=== PATIENT | male | born 1955 | race Caucasian/White ===

== ENCOUNTER 2023-02-05 10:15 | Outpatient (RCR) | payer MEDICARE, SELFPAY ==
[2023-01-15 09:58] VITALS: BP 161/88; PULSE 83; RESP 16; TEMP 36.9; BMI 49.1
[2023-01-15 10:16] VITALS: BMI 49.1
--- NOTE | 2023-01-15 13:49 | HP.PCM_ITS ---
History of Present Illness Date of Service: 01/15/23 Chief Complaint: Ulcerations, right posterior calf History of Wound: This is a 67-year-old obese male who presents with 2 ulcerations on the right posterior calf. The patient claimed to have had ulcerations in his lower extremities intermittently for many years. The current ulcerations have been present for several months. They occurred spontaneously, after the formation of blisters. The patient is inactive. Ambulation is limited, and he requires a cane or walker for mobility. He is morbidly obese. He sleeps in a chair. He wears graduated compression stockings of less than 20 to 30 mmHg compression. He also has pneumatic compression pumps, which he is not currently using. He has chronic swelling, edema, and lymphedema in his lower extremities. He spends a good part of each day sitting while watching television. The patient has recently undergone a venous duplex examination which revealed valvular incompetence involving the right great saphenous vein. A computerized tomography angiogram/venogram revealed no evidence of iliac vein obstruction. The patient does not smoke or drink. He is single and lives alone. [facility] Medical History (Updated 01/15/23 @ 14:[address] 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 Right leg swelling Sleep apnea in adult Varicose veins with ulcer and inflammation Venous stasis ulcer of right lower leg with edema of right lower leg Home Medications bumetanide 2 mg tablet 2 mg PO DAILY 01/15/23 [History Last Taken Unknown] fluoxetine 40 mg capsule 40 mg PO DAILY 01/15/23 [History Last Taken Unknown] lisinopril 20 mg tablet 20 mg PO DAILY 01/15/23 [History Last Taken Unknown] potassium citrate 10 mEq (1,080 mg) tablet,extended release 10 meq PO DAILY 01/15/23 [History Last Taken Unknown] valproic acid 250 mg capsule 250 mg PO TID 01/15/23 [History Last Taken Unknown] Allergy/AdvReac Type Severity Reaction Status Date / Time No Known Allergies Allergy Verified 01/15/23 10:10 other (The patient's family history includes abdominal aortic aneurysm, hypertension, coronary artery disease, COPD, hypothyroidism, and diabetes mellitus.) Surgical History History of bunionectomy History of tonsillectomy Social History Smoking Status: Never smoker Vital Signs Vital Signs Vital Signs: 01/15/23 09:58 Temperature 98.4 F Temperature Source Temporal Pulse Rate 83 Respiratory Rate 16 Blood Pressure 161/88 H Blood Pressure Mean 112 Blood Pressure Source Monitor Blood Pressure Position Semi-Fowlers Blood Pressure Location Left Arm Weight Weight: 372 lb Body Mass Index (BMI) 49.1 Physical Exam Const alert, oriented x3, no apparent distress, no limitations and well nourished Constitutional Narrative: The patient is morbidly obese. His BMI is 49.1. General Appearance: cooperative, comfortable, well kempt and well developed Orientation / Consciousness: awake, oriented to person, oriented to place and oriented to time HEENT normocephalic, head/scalp atraumatic and hearing grossly normal bilaterally Head and Scalp: normal to inspection, normocephalic and atraumatic External Ear: external ears normal Eyes PERRL and EOMs intact bilaterally General Eye: normal appearance of both eyes Resp normal respiratory effort, normal air movement, no retractions and no use of accessory muscles Effort and Inspection: able to speak in complete sentences Extremity no calf tenderness General Extremity: Negative for clubbing or cyanosis Skin Wound Narrative: 2 ulcerations are noted on the patient's right posterior calf. Dimensions are documented elsewhere. There is a moderate amount of bioburden and some nonviable tissue. There is no sign of infection or cellulitis. Moderate swelling and edema are noted in the patient's lower extremities bilaterally. Lipodermatosclerosis and hyperpigmentation are noted bilaterally in the gaiter areas. Multiphasic, strong ankle pulses are noted bilaterally. Neuro oriented x3, CN's II-XII intact bilaterally, moves all extremities and no focal motor deficits Sensorium / Orientation: awake, alert, oriented to person, oriented to place and oriented to time Psych Appearance: grossly normal and appropriate Attitude: calm Activity / Motor Behavior: appropriate eye contact Speech: normal speech Mood & Affect: euthymic mood Thought Process: normal thought process Thought Content: normal thought content Attention / Concentration: attention grossly intact Debridement Note Debridement Note Wound debrided: 2 ulcerations of the right posterior calf Laterality: Right Type of Debridement: Excisional debridement Anesthesia Used: 5% Lidocaine Gel Depth: Down to and including healthy tissue and in the subcutaneous layer Percentage of wound debrided: 100 Instrument Used: 5mm curette Tissue Removed: Bioburden and nonviable tissue Severity: Fat Layer Exposed Amount of bleeding with debridement: Mild Bleeding Controlled with: Compression and gauze Patient tolerated procedure: Patient tolerated procedure well Post-Debridement Measurements and Additional Note: Post-Debridement Measurements/Treatment - Nurse 1 - General Ulcer Assessment Start: 01/15/23 09:57 Freq: Status: Active Protocol: JACKIE Activity Type Activity Date Activity User E-sign Co-sign Detail Recorded Client Recorded Date Recorded By Document 01/15/23 09:58 [id number] 01/15/23 10:10 Edit Result 01/15/23 09:58 (1) [id number] 01/15/23 10:16 Document 01/15/23 10:16 [id number] 01/15/23 10:17 (1) Left - Posterior Tibial Palpable => Yes - Posterior Tibial Doppler => Multiphasic - Dorsalis Pedis Palpable => Yes - Dorsalis Pedis Doppler => Multiphasic Right - Posterior Tibial Palpable => Yes - Posterior Tibial Doppler => Multiphasic - Dorsalis Pedis Palpable => Yes - Dorsalis Pedis Doppler => Multiphasic 01/15/23 01/15/23 09:58 10:16 - Today's Visit Information Type of service Initial Visit Arrival Mode Ambulatory, Wheelchair Patient Identification Verified (Name & Yes ) Patient Requires Transmission-Based No Precautions Height and Weight Height 6 ft 1 in Weight 372 lb Weight in Pounds 372.0 lbs Body Mass Index (BMI) 49.1 49.1 BMI Classification Obese Obese BSA - Nabil 2.80 Vital Signs Temperature (97.8 F-99.1 F) 98.4 F Temperature Source Temporal Pulse Rate (60-100) 83 Pulse Location Apical Respiratory Rate (12-18) 16 Respiratory rate source Observation Blood Pressure (90/60-120/80) 161/88 H Blood Pressure Mean 112 Source Monitor Position Semi-Fowlers Blood Pressure Location Left Arm History Since Last Visit- (Skip if this is Patient's initial visit) Left Footwear Regular Shoe Right Footwear Regular Shoe Pain Scale: 0-10 Numeric Is Patient Pain Free? Yes Yes Lower Extremity Assessment/ Foot Assessment/ Toe Nail Assessment Left -Posterior Tibial Palpable Yes -Posterior Tibial Doppler Multiphasic -Dorsalis Pedis Palpable Yes -Dorsalis Pedis Doppler Multiphasic Right -Posterior Tibial Palpable Yes -Posterior Tibial Doppler Multiphasic -Dorsalis Pedis Palpable Yes -Dorsalis Pedis Doppler Multiphasic Communication Assessment Preferred language Tajik Gear Nicker Required No Able to Read Yes Able to Write Yes Communication Tools None Right Hearing Abillity Hard of Hearing Left Hearing Abillity Normal Visual Assistive Devices Glasses Teaching Assessment Preferences Verbal,Audio/ Visual, Demonstration Barriers to Learning None Readiness To Learn Excellent Willingness to Engage in Self Management High Activies Readiness to Engage in Self Management High Activities Anxiety Level Anxious Cooperation Cooperative Perception Coherent Interest in Health Problem Asks Questions Education Importance Acknowledges Need Does Patient Smoke tobacco or other No substances Smoking Status Never smoker Is Patient Diabetic No Functional Assessment Recent Decline in Ability to Perform Ambulation Assistive Device With Patient walker Culture/Catholic/Senior Mechanical Engineer Cultural/Catholic Needs that may affect No Treatment Plan Would you allow our hospital commercial account executive to No meet you for the purpose of spiritual/ emotional support? Senior Mechanical Engineer to contact place of advent No Teaching: Wound Center [facility] Orientation/ Contacting Physician -Person Taught Patient -Teaching Method Discussion, Demonstration -Response to teaching Return demonstration, Verbalize understanding - Nurse 1 - General Ulcer Measurement Start: 01/15/23 09:57 Freq: Status: Active Protocol: Activity Type Activity Date Activity User E-sign Co-sign Detail Recorded Client Recorded Date Recorded By Document 01/15/23 09:58 [id number] 01/15/23 10:10 LUCINA 01/15/23 09:58 Wound Center Nurse 1 2-right lateral calf -Combined with other wound No -Current Size (cm) - Length 0.9 -Current Size (cm) - Width 1.3 -Current Size (cm) - Depth 0.3 -Total Square Cm 1.17 -Photo Taken Yes -Epithelialization Small 1-33% -Tunneling No -Undermining/Tunneling No -Circular Undermining No -Exudate Amt Small -Exudate Type Serosanguineous -Wound Margin Flat & Intact -Granulation Amt Medium (34-66%) -Granulation Quality Pale,[place] -Slough/Fibrin Yes -Necrosis Amt Medium (34-66%) -Necrotic Tissue Type Adherent Slough -Structure Exposed N/A -Texture (Marilynn-wound Skin Appearance) Assessed, Localized Edema -Moisture (Marilynn-wound Skin Appearance) Assessed,Dry/ Scaly -Color (Marilynn-wound Skin Appearance) Assessed, Hemosiderin Staining -Temperature (Marilynn-wound Skin No Abnormality Appearance) (Pt Warm) -Tenderness on Palpation (Marilynn-wound No Skin Appearance) -Ulcer Cleansing Rinsed/ Irrigated with Saline -Foul Odor after Cleansing No -Anesthetic Used 5% Lidocaine Gel 1-right medial calf cluster -Combined with other wound No -Current Size (cm) - Length 0.8 -Current Size (cm) - Width 2.1 -Current Size (cm) - Depth 0.2 -Total Square Cm 1.68 -Photo Taken Yes -Epithelialization Small 1-33% -Tunneling No -Undermining/Tunneling No -Circular Undermining No -Classification - Thickness Full Thickness without Exposed Support Structure -Exudate Amt Small -Exudate Type Serosanguineous -Wound Margin Flat & Intact -Granulation Amt Small (1-33%) -Granulation Quality Pale -Slough/Fibrin Yes -Necrosis Amt Small (1-33%) -Necrotic Tissue Type Adherent Slough -Structure Exposed N/A -Texture (Marilynn-wound Skin Appearance) Assessed, Localized Edema -Moisture (Marilynn-wound Skin Appearance) Assessed,Dry/ Scaly -Color (Marilynn-wound Skin Appearance) Assessed, Hemosiderin Staining -Temperature (Marilynn-wound Skin No Abnormality Appearance) (Pt Warm) -Tenderness on Palpation (Marilynn-wound No Skin Appearance) -Ulcer Cleansing Rinsed/ Irrigated with Saline -Foul Odor after Cleansing No -Anesthetic Used 5% Lidocaine Gel Lower Limb Edema Present Yes Right Calf (cm) 48.7 Right Ankle (cm) 32.3 Left Calf (cm) 51.2 Left Ankle (cm) 31.5 WC - Nurse 3 - General Ulcer D/C NN Start: 01/15/23 09:57 Freq: Status: Active Protocol: Activity Type Activity Date Activity User E-sign Co-sign Detail Recorded Client Recorded Date Recorded By Document 01/15/23 10:52 DL [id number] 01/15/23 10:54 DL 01/15/23 10:52 Wound Care Center Nurse 3 2-right lateral calf -Ulcer Cleansing Rinsed/ Irrigated with Saline -Foul Odor after Cleansing No -Primary Dressing Applied Promogran -Primary Dressing Covered/Secured with Dry Gauze -Promogran 1 1-right medial calf cluster -Ulcer Cleansing Rinsed/ Irrigated with Saline -Foul Odor after Cleansing No -Other Dressing promgran -Primary Dressing Covered/Secured with Dry Gauze liyah -Multi-Layered Wrap Application Unna Boot - Bilateral ($) Treatment Response Procedure Tolerated Well Pain Scale: 0-10 Numeric Is Patient Pain Free? Yes WC - Visit Discharge Discharge Condition Stable Ambulatory Status Ambulatory Transportation Private Auto Assessment/Plan Assessment/Plan (1) Venous stasis ulcer of right lower leg with edema of right lower leg: CODE(S): I83.019 - Varicose veins of right lower extremity with ulcer of unspecified site; I83.891 - Varicose veins of right lower extremity with other complications; L97.919 - Non-pressure chronic ulcer of unspecified part of right lower leg with unspecified severity; R60.0 - Localized edema (2) Chronic venous hypertension w/ulcer and inflammation involv right side: CODE(S): I87.331 - Chronic venous hypertension (idiopathic) with ulcer and inflammation of right lower extremity (3) Right leg swelling: CODE(S): M79.89 - Other specified soft tissue disorders (4) Leg edema, right: CODE(S): R60.0 - Localized edema (5) Lymphedema: CODE(S): I89.0 - Lymphedema, not elsewhere classified (6) 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: CODE(S): I87.039 - Postthrombotic syndrome with ulcer and inflammation of unspecified lower extremity (7) History of deep vein thrombosis: CODE(S): Z86.718 - Personal history of other venous thrombosis and embolism (8) History of pulmonary embolism: CODE(S): Z86.711 - Personal history of pulmonary embolism (9) Varicose veins with ulcer and inflammation: CODE(S): I83.209 - Varicose veins of unspecified lower extremity with both ulcer of unspecified site and inflammation; L97.909 - Non-pressure chronic ulcer of unspecified part of unspecified lower leg with unspecified severity (10) Morbid obesity with BMI of 45.0-49.9, adult: CODE(S): E66.01 - Morbid (severe) obesity due to excess calories; Z68.42 - Body mass index [BMI] 45.0-49.9, adult (11) Hypertension: CODE(S): I10 - Essential (primary) hypertension (12) Diabetes mellitus: CODE(S): E11.9 - Type 2 diabetes mellitus without complications (13) Sleep apnea in adult: CODE(S): G47.30 - Sleep apnea, unspecified (14) Left leg swelling: CODE(S): M79.89 - Other specified soft tissue disorders (15) Leg edema, left: CODE(S): R60.0 - Localized edema (16) History of bunionectomy: CODE(S): Z98.890 - Other specified postprocedural states (17) History of tonsillectomy: CODE(S): Z90.89 - Acquired absence of other organs (18) Lipodermatosclerosis of both lower extremities: CODE(S): I83.11 - Varicose veins of right lower extremity with inflammation; I83.12 - Varicose veins of left lower extremity with inflammation (19) Dependent edema: CODE(S): R60.9 - Edema, unspecified PLAN: Plan This is a 67-year-old obese male with a history of ulcerations in his lower extremities. He presents at this time with 2 ulcerations on the right posterior calf, which have been present for several months. Patient has a history of lower extremity swelling and edema. He is relatively inactive. He spends a great deal of each day sitting and inactive. We are to implement a protocol of conservative treatment measures. A lengthy discussion has been undertaken with the patient. He has been encouraged to enhance his activity is much as possible. He has been discouraged from prolonged idle sitting. Leg elevation has been encouraged as well. Elevation is to be to heart level, or higher, is much as possible, and during both daytime and nighttime hours. The patient has been encouraged to sleep on a flat mattress at night. We are to implement compression to the lower extremities by means of Unna boots, which will be applied bilaterally, and changed twice weekly. Promogran will be applied topically on each of the 2 right posterior calf ulcerations. Ultimately, it will be necessary to transition the patient to compression to the lower extremities bilaterally, either by means of graduated compression stockings or Velcro compression garments. It is anticipated that compression should be at least 20 to 30 mmHg for the long-term. Weight loss is also been recommended. The patient owns pneumatic mechanical compression pumps, and has been asked to provide the brand and model number, so that he can be assured that these are adequate for his needs. The patient is to return in 1 week for reassessment. Total time: 52 minutes
[2023-01-18 11:47] VITALS: BP 181/88; PULSE 68; RESP 18; TEMP 35.5; BMI 49.1
[2023-01-22 10:18] VITALS: BP 157/83; PULSE 80; RESP 20; TEMP 36.6; BMI 49.1
--- NOTE | 2023-01-22 12:50 | PCM.WC.HP ---
History of Present Illness Date of Service: 01/22/23 Chief Complaint: Ulcerations, right posterior calf History of Wound: This is a 67-year-old obese male who presented with 2 ulcerations on the right posterior calf. The patient claimed to have had ulcerations in his lower extremities intermittently for many years. The current ulcerations had been present for several months. They occurred spontaneously, after the formation of blisters. The patient is inactive. Ambulation is limited, and he requires a cane or walker for mobility. He is morbidly obese. He sleeps in a chair. He wears graduated compression stockings of less than 20 to 30 mmHg compression. He also has pneumatic compression pumps, which he was not currently using. He has chronic swelling, edema, and lymphedema in his lower extremities. He spends a good part of each day sitting while watching television. The patient had recently undergone a venous duplex examination which revealed valvular incompetence involving the right great saphenous vein. A computerized tomography angiogram/venogram revealed no evidence of iliac vein obstruction. The patient does not smoke or drink. He is single and lives alone. 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 Right leg swelling Sleep apnea in adult Varicose veins with ulcer and inflammation Venous stasis ulcer of right lower leg with edema of right lower leg Home Medications bumetanide 2 mg tablet 2 mg PO DAILY 01/15/23 [History Last Taken Unknown] fluoxetine 40 mg capsule 40 mg PO DAILY 01/15/23 [History Last Taken Unknown] lisinopril 20 mg tablet 20 mg PO DAILY 01/15/23 [History Last Taken Unknown] potassium citrate 10 mEq (1,080 mg) tablet,extended release 10 meq PO DAILY 01/15/23 [History Last Taken Unknown] valproic acid 250 mg capsule 250 mg PO TID 01/15/23 [History Last Taken Unknown] Allergy/AdvReac Type Severity Reaction Status Date / Time No Known Allergies Allergy Verified 01/15/23 10:10 Family History other Surgical History History of bunionectomy History of tonsillectomy Social History Smoking Status: Never smoker Vital Signs Vital Signs Vital Signs: 01/22/23 10:18 Temperature 98 F Temperature Source Temporal Pulse Rate 80 Respiratory Rate 20 H Blood Pressure 157/83 H Blood Pressure Mean 107 Blood Pressure Source Monitor Weight Weight: 372 lb Body Mass Index (BMI) 49.1 Physical Exam Const alert, oriented x3, no apparent distress, no limitations and well nourished Constitutional Narrative: The patient is morbidly obese. His BMI is 49.1. General Appearance: cooperative, comfortable, well kempt and well developed Orientation / Consciousness: awake, oriented to person, oriented to place and oriented to time HEENT normocephalic, head/scalp atraumatic and hearing grossly normal bilaterally Head and Scalp: normal to inspection, normocephalic and atraumatic External Ear: external ears normal Eyes PERRL and EOMs intact bilaterally General Eye: normal appearance of both eyes Resp normal respiratory effort, normal air movement, no retractions and no use of accessory muscles Effort and Inspection: able to speak in complete sentences Extremity no calf tenderness General Extremity: Negative for clubbing or cyanosis Skin Wound Narrative: Only 1 small ulceration remains on the patient's right posterior calf. Dimensions are documented elsewhere. There is no sign of infection or cellulitis. There is a small amount of bioburden. A new, superficial excoriation is noted on the left lateral calf. There is no sign of infection or cellulitis. It does not appear to be full-thickness. Dimensions are documented elsewhere. Moderate swelling and edema are noted in the patient's lower extremities bilaterally. Lipodermatosclerosis and hyperpigmentation are noted bilaterally in the gaiter areas. Multiphasic, strong ankle pulses are noted bilaterally. Neuro oriented x3, CN's II-XII intact bilaterally, moves all extremities and no focal motor deficits Sensorium / Orientation: awake, alert, oriented to person, oriented to place and oriented to time Psych Appearance: grossly normal and appropriate Attitude: calm Activity / Motor Behavior: appropriate eye contact Speech: normal speech Mood & Affect: euthymic mood Thought Process: normal thought process Thought Content: normal thought content Attention / Concentration: attention grossly intact Debridement Note Debridement Note Wound debrided: Ulceration of the right posterior calf Laterality: Right Type of Debridement: Excisional debridement Anesthesia Used: 5% Lidocaine Gel Depth: Down to and including healthy tissue and in the subcutaneous layer Percentage of wound debrided: 100 Instrument Used: 3mm curette Tissue Removed: Bioburden Severity: Fat Layer Exposed Amount of bleeding with debridement: Mild Bleeding Controlled with: Compression and gauze Patient tolerated procedure: Patient tolerated procedure well Post-Debridement Measurements and Additional Note: Post-Debridement Measurements/Treatment - Nurse 1 - General Ulcer Assessment Start: 01/15/23 09:57 Freq: Status: Active Protocol: PadcomBOBBY Activity Type Activity Date Activity User E-sign Co-sign Detail Recorded Client Recorded Date Recorded By Document 01/15/23 09:58 [id number] 01/15/23 10:10 Edit Result 01/15/23 09:58 JF (1) [id number] 01/15/23 10:16 Document 01/15/23 10:16 JF [id number] 01/15/23 10:17 Document 01/18/23 11:47 RB [id number] 01/18/23 11:49 RB Document 01/22/23 10:18 DL [id number] 01/22/23 10:30 DL (1) Left - Posterior Tibial Palpable => Yes - Posterior Tibial Doppler => Multiphasic - Dorsalis Pedis Palpable => Yes - Dorsalis Pedis Doppler => Multiphasic Right - Posterior Tibial Palpable => Yes - Posterior Tibial Doppler => Multiphasic - Dorsalis Pedis Palpable => Yes - Dorsalis Pedis Doppler => Multiphasic 01/15/23 01/15/23 01/18/23 09:58 10:16 11:47 - Today's Visit Information Type of service Initial Visit Nurse-only Visit Arrival Mode Ambulatory, Ambulatory Wheelchair Transfer Assistance None Patient Identification Verified (Name & Yes Yes ) Patient Requires Transmission-Based No No Precautions Height and Weight Height 6 ft 1 in Weight 372 lb Weight in Pounds 372.0 lbs Body Mass Index (BMI) 49.1 49.1 49.1 BMI Classification Obese Obese Obese BSA - Nabil 2.80 Vital Signs Temperature (97.8 F-99.1 F) 98.4 F 96 F L Temperature Source Temporal Temporal Pulse Rate (60-100) 83 68 Pulse Location Apical Monitor Respiratory Rate (12-18) 16 18 Respiratory rate source Observation Observation Blood Pressure (90/60-120/80) 161/88 H 181/88 H Blood Pressure Mean 112 119 Source Monitor Monitor Position Semi-Fowlers Sitting Blood Pressure Location Left Arm Left Arm History Since Last Visit- (Skip if this is Patient's initial visit) Have you changed medications since your last visit? Any new allergies or adverse reactions Had a fall/change in ADL's that may increase risk of falls Signs or symptoms of abuse and/or neglect since last visit Have you been in the hospital since your last visit? Has dressing in place as prescribed Has compression in place as prescribed Has offloadiing in place as prescribed Experienced any changes in pain level or management Left Footwear Regular Shoe Right Footwear Regular Shoe Pain Scale: 0-10 Numeric Is Patient Pain Free? Yes Yes Yes Lower Extremity Assessment/ Foot Assessment/ Toe Nail Assessment Left -Posterior Tibial Palpable Yes -Posterior Tibial Doppler Multiphasic -Dorsalis Pedis Palpable Yes -Dorsalis Pedis Doppler Multiphasic Right -Posterior Tibial Palpable Yes -Posterior Tibial Doppler Multiphasic -Dorsalis Pedis Palpable Yes -Dorsalis Pedis Doppler Multiphasic Communication Assessment Preferred language [place] Waste Transportation Technician Required No Able to Read Yes Able to Write Yes Communication Tools None Right Hearing Abillity Hard of Hearing Left Hearing Abillity Normal Visual Assistive Devices Glasses Teaching Assessment Preferences Verbal,Audio/ Visual, Demonstration Barriers to Learning None Readiness To Learn Excellent Willingness to Engage in Self Management High Activies Readiness to Engage in Self Management High Activities Anxiety Level Anxious Cooperation Cooperative Perception Coherent Interest in Health Problem Asks Questions Education Importance Acknowledges Need Does Patient Smoke tobacco or other No substances Smoking Status Never smoker Is Patient Diabetic No Functional Assessment Recent Decline in Ability to Perform Ambulation Assistive Device With Patient walker Culture/Caodaism/Green Building Materials Designer Cultural/Caodaism Needs that may affect No Treatment Plan Would you allow our hospital department editor to No meet you for the purpose of spiritual/ emotional support? Green Building Materials Designer to contact place of cheondoism No Teaching: Wound Center [facility] Orientation/ Contacting Physician -Person Taught Patient -Teaching Method Discussion, Demonstration -Response to teaching Return demonstration, Verbalize understanding 01/22/23 10:18 - Today's Visit Information Type of service Follow-up Visit (Physician/RN POSTPARTUM ) Arrival Mode Ambulatory, Walker Transfer Assistance None Patient Identification Verified (Name & Yes ) Patient Requires Transmission-Based No Precautions Height and Weight Height Weight Weight in Pounds Body Mass Index (BMI) 49.1 BMI Classification Obese BSA - Nabil Vital Signs Temperature (97.8 F-99.1 F) 98 F Temperature Source Temporal Pulse Rate (60-100) 80 Pulse Location Monitor Respiratory Rate (12-18) 20 H Respiratory rate source Observation Blood Pressure (90/60-120/80) 157/83 H Blood Pressure Mean 107 Source Monitor Position Blood Pressure Location History Since Last Visit- (Skip if this is Patient's initial visit) Have you changed medications since your No last visit? Any new allergies or adverse reactions No Had a fall/change in ADL's that may No increase risk of falls Signs or symptoms of abuse and/or No neglect since last visit Have you been in the hospital since your No last visit? Has dressing in place as prescribed Yes Has compression in place as prescribed Yes Has offloadiing in place as prescribed N/A Experienced any changes in pain level or No management Left Footwear Right Footwear Pain Scale: 0-10 Numeric Is Patient Pain Free? Yes Lower Extremity Assessment/ Foot Assessment/ Toe Nail Assessment Left -Posterior Tibial Palpable -Posterior Tibial Doppler -Dorsalis Pedis Palpable -Dorsalis Pedis Doppler Right -Posterior Tibial Palpable -Posterior Tibial Doppler -Dorsalis Pedis Palpable -Dorsalis Pedis Doppler Communication Assessment Preferred sql dba Required Able to Read Able to Write Communication Tools Right Hearing Abillity Left Hearing Abillity Visual Assistive Devices Teaching Assessment Preferences Barriers to Learning Readiness To Learn Willingness to Engage in Self Management Activies Readiness to Engage in Self Management Activities Anxiety Level Cooperation Perception Interest in Health Problem Education Importance Does Patient Smoke tobacco or other substances Smoking Status Is Patient Diabetic Functional Assessment Recent Decline in Ability to Perform Assistive Device With Patient Culture/Caodaism/Green Building Materials Designer Cultural/Caodaism Needs that may affect Treatment Plan Would you allow our hospital department editor to meet you for the purpose of spiritual/ emotional support? Green Building Materials Designer to contact place of cheondoism Teaching: Wound Center [facility] Orientation/ Contacting Physician -Person Taught -Teaching Method -Response to teaching [facility] Nurse 1 - General Ulcer Measurement Start: 01/15/23 09:57 Freq: Status: Active Protocol: Activity Type Activity Date Activity User E-sign Co-sign Detail Recorded Client Recorded Date Recorded By Document 01/15/23 09:58 JF [id number] 01/15/23 10:10 Document 01/18/23 11:47 RB [id number] 01/18/23 11:49 RB Document 01/22/23 10:18 DL [id number] 01/22/23 10:30 DL 01/15/23 01/18/23 01/22/23 09:58 11:47 10:18 Wound Center Nurse 1 2-right lateral calf -Combined with other wound No -Current Size (cm) - Length 0.9 -Current Size (cm) - Width 1.3 -Current Size (cm) - Depth 0.3 -Total Square Cm 1.17 -Photo Taken Yes -Epithelialization Small 1-33% -Tunneling No -Undermining/Tunneling No -Circular Undermining No -Exudate Amt Small -Exudate Type Serosanguineous -Wound Margin Flat & Intact -Granulation Amt Medium (34-66%) -Granulation Quality Pale,[place] -Slough/Fibrin Yes -Necrosis Amt Medium (34-66%) -Necrotic Tissue Type Adherent Slough -Structure Exposed N/A -Texture (Marilynn-wound Skin Appearance) Assessed, Localized Edema -Moisture (Marilynn-wound Skin Appearance) Assessed,Dry/ Scaly -Color (Marilynn-wound Skin Appearance) Assessed, Hemosiderin Staining -Temperature (Marilynn-wound Skin No Abnormality Appearance) (Pt Warm) -Tenderness on Palpation (Marilynn-wound No Skin Appearance) -Ulcer Cleansing Rinsed/ Irrigated with Saline -Foul Odor after Cleansing No -Anesthetic Used 5% Lidocaine Gel #3 L Shah -Current Size (cm) - Length 1.6 -Current Size (cm) - Width 1.4 -Current Size (cm) - Depth 0.1 -Total Square Cm 2.24 -Photo Taken Yes -Exudate Amt Small -Exudate Type Serosanguineous -Wound Margin Distinct, Outline Attached -Granulation Amt Large (67-100%) -Granulation Quality [place] -Necrosis Amt None Present (0 %) -Structure Exposed N/A -Texture (Marilynn-wound Skin Appearance) Scarring -Moisture (Marilynn-wound Skin Appearance) Weeping -Color (Marilynn-wound Skin Appearance) Hemosiderin Staining -Temperature (Marilynn-wound Skin No Abnormality Appearance) (Pt Warm) -Tenderness on Palpation (Marilynn-wound No Skin Appearance) -Ulcer Cleansing Not Cleansed -Foul Odor after Cleansing No -Anesthetic Used 5% Lidocaine Gel 1-right medial calf cluster -Combined with other wound No -Current Size (cm) - Length 0.8 0.1 -Current Size (cm) - Width 2.1 0.1 -Current Size (cm) - Depth 0.2 0.1 -Total Square Cm 1.68 0.01 -Photo Taken Yes -Epithelialization Small 1-33% -Tunneling No -Undermining/Tunneling No -Circular Undermining No -Classification - Thickness Full Thickness without Exposed Support Structure -Exudate Amt Small None Present -Exudate Type Serosanguineous -Wound Margin Flat & Intact Flat & Intact -Granulation Amt Small (1-33%) Large (67-100%) -Granulation Quality Pale Red -Slough/Fibrin Yes -Necrosis Amt Small (1-33%) None Present (0 %) -Necrotic Tissue Type Adherent Slough -Structure Exposed N/A N/A -Texture (Marilynn-wound Skin Appearance) Assessed, Scarring Localized Edema -Moisture (Marilynn-wound Skin Appearance) Assessed,Dry/ Dry/Scaly Scaly -Color (Marilynn-wound Skin Appearance) Assessed, Hemosiderin Hemosiderin Staining Staining -Temperature (Marilynn-wound Skin No Abnormality No Abnormality Appearance) (Pt Warm) (Pt Warm) -Tenderness on Palpation (Marilynn-wound No No Skin Appearance) -Ulcer Cleansing Rinsed/ Soap and Water Irrigated with Saline -Foul Odor after Cleansing No No -Anesthetic Used 5% Lidocaine 5% Lidocaine Gel Gel Lower Limb Edema Present Yes Yes Right Calf (cm) 48.7 49.9 45 Right Ankle (cm) 32.3 30.2 30 Left Calf (cm) 51.2 49.5 46 Left Ankle (cm) 31.5 30 29.5 WC - Nurse 2 - General Ulcer CM Notes Start: 01/15/23 09:57 Freq: Status: Active Protocol: Activity Type Activity Date Activity User E-sign Co-sign Detail Recorded Client Recorded Date Recorded By Document 01/15/23 14:11 PL [id number] 01/15/23 14:13 PL 01/15/23 14:11 Wound Center Nurse 2 2-right lateral calf -Procedure Performed No -Wound/Ulcer Outcome Healed- Epithelialized 1-right medial calf cluster -Time 10:30 -Correct Patient Yes -Correct Side, Site, Position Yes -Correct Procedure Yes -Procedure Performed Yes -Type of Procedure Debridement -Clinical Debridement Subcutaneous -Tissue Removed Subcutaneous -Post Debridement (cm) - Length 0.8 -Post Debridement (cm) - Width 2.1 -Post Debridement (cm) - Depth 0.2 -Total Square (Post) (cm) 1.68 -Area of Debridement (cm) - Length 0.8 -Area of Debridement (cm) - Width 2.1 -Total Square (Area) (cm) 1.68 -Tunneling No -Undermining/Tunneling No -Circular Undermining No -Wound/Ulcer Outcome Not Healed -Ulcer Cleansing Rinsed/ Irrigated with Saline -Foul Odor after Cleansing No -Bioengineered Tissue No -Bleeding Controlled with Pressure -Treatment Response Procedure Tolerated Well -Debridement - Subq, 1st 20sq cm Yes Pain Scale: 0-10 Numeric Is Patient Pain Free? Yes WC - Nurse 3 - General Ulcer D/C NN Start: 01/15/23 09:57 Freq: Status: Active Protocol: Activity Type Activity Date Activity User E-sign Co-sign Detail Recorded Client Recorded Date Recorded By Document 01/15/23 10:52 DL [id number] 01/15/23 10:54 DL Document 01/18/23 11:47 RB [id number] 01/18/23 11:49 RB Document 01/22/23 11:04 [facility] [id number] 01/22/23 11:05 [facility] 01/15/23 01/18/23 01/22/23 10:52 11:47 11:04 Wound Care Center Nurse 3 2-right lateral calf -Ulcer Cleansing Rinsed/ Irrigated with Saline -Foul Odor after Cleansing No -Primary Dressing Applied Promogran -Primary Dressing Covered/Secured with Dry Gauze -Promogran 1 #3 L Shah -Ulcer Cleansing Rinsed/ Irrigated with Saline -Foul Odor after Cleansing No -Primary Dressing Applied Promogran -Primary Dressing Covered/Secured with Dry Gauze, Secured with Tape -Promogran 2 1-right medial calf cluster -Ulcer Cleansing Rinsed/ Wound Cleanser Rinsed/ Irrigated with Irrigated with Saline Saline -Foul Odor after Cleansing No No -Primary Dressing Applied Promogran -Other Dressing promgran promogran -Primary Dressing Covered/Secured with Dry Gauze Dry Gauze Dry Gauze, Secured with Tape -Promogran 0 ble -Tubular Bandage Single Layer -Size of Tubigrip Used Size F -Size F ($) 2 liyah -Multi-Layered Wrap Application Unna Boot - Unna Boot - Bilateral ($) Bilateral ($) -Tubular Bandage Single Layer -Size of Tubigrip Used Size E -Size E ($) 2 Treatment Response Procedure Procedure Procedure Tolerated Well Tolerated Well Tolerated Well Vital Signs Temperature (97.8 F-99.1 F) 96 F L Temperature Source Temporal Pulse Rate (60-100) 68 Pulse Location Monitor Respiratory Rate (12-18) 18 Respiratory rate source Observation Blood Pressure (90/60-120/80) 181/88 H Blood Pressure Mean 119 Source Monitor Position Sitting Blood Pressure Location Left Arm Pain Scale: 0-10 Numeric Is Patient Pain Free? Yes Yes Yes WC - Visit Discharge Discharge Condition Stable Stable Stable Ambulatory Status Ambulatory Ambulatory Ambulatory, Walker Transportation Private Auto Private Auto Private Auto Medication Reconcilliation completed & No provided to patient/care provider Clinical Summary of Care Provided Yes Assessment/Plan Assessment/Plan (1) Venous stasis ulcer of right lower leg with edema of right lower leg: CODE(S): I83.019 - Varicose veins of right lower extremity with ulcer of unspecified site; I83.891 - Varicose veins of right lower extremity with other complications; L97.919 - Non-pressure chronic ulcer of unspecified part of right lower leg with unspecified severity; R60.0 - Localized edema (2) Chronic venous hypertension w/ulcer and inflammation involv right side: CODE(S): I87.331 - Chronic venous hypertension (idiopathic) with ulcer and inflammation of right lower extremity (3) Right leg swelling: CODE(S): M79.89 - Other specified soft tissue disorders (4) Leg edema, right: CODE(S): R60.0 - Localized edema (5) Lymphedema: CODE(S): I89.0 - Lymphedema, not elsewhere classified (6) 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: CODE(S): I87.039 - Postthrombotic syndrome with ulcer and inflammation of unspecified lower extremity (7) History of deep vein thrombosis: CODE(S): Z86.718 - Personal history of other venous thrombosis and embolism (8) History of pulmonary embolism: CODE(S): Z86.711 - Personal history of pulmonary embolism (9) Varicose veins with ulcer and inflammation: CODE(S): I83.209 - Varicose veins of unspecified lower extremity with both ulcer of unspecified site and inflammation; L97.909 - Non-pressure chronic ulcer of unspecified part of unspecified lower leg with unspecified severity (10) Morbid obesity with BMI of 45.0-49.9, adult: CODE(S): E66.01 - Morbid (severe) obesity due to excess calories; Z68.42 - Body mass index [BMI] 45.0-49.9, adult (11) Hypertension: CODE(S): I10 - Essential (primary) hypertension (12) Diabetes mellitus: CODE(S): E11.9 - Type 2 diabetes mellitus without complications (13) Sleep apnea in adult: CODE(S): G47.30 - Sleep apnea, unspecified (14) Left leg swelling: CODE(S): M79.89 - Other specified soft tissue disorders (15) Leg edema, left: CODE(S): R60.0 - Localized edema (16) History of bunionectomy: CODE(S): Z98.890 - Other specified postprocedural states (17) History of tonsillectomy: CODE(S): Z90.89 - Acquired absence of other organs (18) Lipodermatosclerosis of both lower extremities: CODE(S): I83.11 - Varicose veins of right lower extremity with inflammation; I83.12 - Varicose veins of left lower extremity with inflammation (19) Dependent edema: CODE(S): R60.9 - Edema, unspecified PLAN: Plan This is a 67-year-old obese male with a history of ulcerations in his lower extremities. He presented with 2 ulcerations on the right posterior calf, which had been present for several months. The patient has a history of lower extremity swelling and edema. He is relatively inactive. He spends a great deal of each day sitting and inactive. We are to continue a protocol of conservative treatment measures. A lengthy discussion has been undertaken with the patient. He has been encouraged to enhance his activity is much as possible. He has been discouraged from prolonged idle sitting. Leg elevation has been encouraged as well. Elevation is to be to heart level, or higher, is much as possible, and during both daytime and nighttime hours. The patient has been encouraged to sleep on a flat mattress at night. We are to continue compression to the lower extremities by means of Tubigrip's, doubled, for a total of 30 to 40 mmHg compression. These will be donned on a daily basis. Promogran will be applied topically on the ulceration on the right posterior calf and on the excoriation on the left lateral calf. Ultimately, we will consider transition to the use of graduated compression stockings or Velcro compression garments of at least 20 to 30 mmHg compression for long-term use. Weight loss has also been recommended. The patient owns pneumatic mechanical compression pumps, and has been encouraged to use these 2-3 times daily for approximately 1 hour each session. The patient is to return in 1 week for reassessment. Total time: 28 minutes
[2023-01-29 08:34] VITALS: BP 133/86; PULSE 70; RESP 22; TEMP 36; BMI 49.1
--- NOTE | 2023-01-29 09:03 | PCM.WC.HP ---
History of Present Illness Date of Service: 01/29/23 Chief Complaint: Ulcerations, right posterior calf History of Wound: This is a 67-year-old obese male who presented with 2 ulcerations on the right posterior calf. The patient claimed to have had ulcerations in his lower extremities intermittently for many years. The current ulcerations had been present for several months. They occurred spontaneously, after the formation of blisters. The patient is inactive. Ambulation is limited, and he requires a cane or walker for mobility. He is morbidly obese. He sleeps in a chair. He wears graduated compression stockings of less than 20 to 30 mmHg compression. He also has pneumatic compression pumps, which he was not currently using. He has chronic swelling, edema, and lymphedema in his lower extremities. He spends a good part of each day sitting while watching television. The patient had recently undergone a venous duplex examination which revealed valvular incompetence involving the right great saphenous vein. A computerized tomography angiogram/venogram revealed no evidence of iliac vein obstruction. The patient does not smoke or drink. He is single and lives alone. [facility] Medical History (Updated 01/29/23 @ 09:[address] 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 Right leg swelling Sleep apnea in adult Varicose veins with ulcer and inflammation Venous stasis ulcer of left lower leg with edema of left lower leg Venous stasis ulcer of right lower leg with edema of right lower leg Home Medications bumetanide 2 mg tablet 2 mg PO DAILY 01/15/23 [History Last Taken Unknown] fluoxetine 40 mg capsule 40 mg PO DAILY 01/15/23 [History Last Taken Unknown] lisinopril 20 mg tablet 20 mg PO DAILY 01/15/23 [History Last Taken Unknown] potassium citrate 10 mEq (1,080 mg) tablet,extended release 10 meq PO DAILY 01/15/23 [History Last Taken Unknown] valproic acid 250 mg capsule 250 mg PO TID 01/15/23 [History Last Taken Unknown] Allergy/AdvReac Type Severity Reaction Status Date / Time No Known Allergies Allergy Verified 01/15/23 10:10 Family History other Surgical History History of bunionectomy History of tonsillectomy Social History Smoking Status: Never smoker Vital Signs Vital Signs Vital Signs: 01/29/23 08:34 Temperature 96.8 F L Temperature Source Temporal Pulse Rate 70 Respiratory Rate 22 H Blood Pressure 133/86 H Blood Pressure Mean 101 Blood Pressure Source Monitor Weight Weight: 372 lb Body Mass Index (BMI) 49.1 Physical Exam Const alert, oriented x3, no apparent distress, no limitations and well nourished Constitutional Narrative: The patient is morbidly obese. His BMI is 49.1. General Appearance: cooperative, comfortable, well kempt and well developed Orientation / Consciousness: awake, oriented to person, oriented to place and oriented to time HEENT normocephalic, head/scalp atraumatic and hearing grossly normal bilaterally Head and Scalp: normal to inspection, normocephalic and atraumatic External Ear: external ears normal Eyes PERRL and EOMs intact bilaterally General Eye: normal appearance of both eyes Resp normal respiratory effort, normal air movement, no retractions and no use of accessory muscles Effort and Inspection: able to speak in complete sentences Extremity no calf tenderness General Extremity: Negative for clubbing or cyanosis Skin Wound Narrative: Two small ulcerations are noted on the patient's right posterior calf. There is also an ulceration on the left lateral calf. Dimensions of each are documented elsewhere. There is no sign of infection or cellulitis. There is a small amount of bioburden involving each ulceration. Moderate swelling and edema are noted in the patient's lower extremities bilaterally. Lipodermatosclerosis and hyperpigmentation are noted bilaterally in the gaiter areas. Multiphasic, strong ankle pulses are noted bilaterally. Neuro oriented x3, CN's II-XII intact bilaterally, moves all extremities and no focal motor deficits Sensorium / Orientation: awake, alert, oriented to person, oriented to place and oriented to time Psych Appearance: grossly normal and appropriate Attitude: calm Activity / Motor Behavior: appropriate eye contact Speech: normal speech Mood & Affect: euthymic mood Thought Process: normal thought process Thought Content: normal thought content Attention / Concentration: attention grossly intact Debridement Note Debridement Note Wound debrided: Ulceration of the right posterior calf Laterality: Right Type of Debridement: Excisional debridement Anesthesia Used: 5% Lidocaine Gel Depth: Down to and including healthy tissue and in the subcutaneous layer Percentage of wound debrided: 100 Instrument Used: 3mm curette Tissue Removed: Bioburden Severity: Fat Layer Exposed Amount of bleeding with debridement: Mild Bleeding Controlled with: Compression and gauze Patient tolerated procedure: Patient tolerated procedure well Post-Debridement Measurements and Additional Note: Post-Debridement Measurements/Treatment - Nurse 1 - General Ulcer Assessment Start: 01/15/23 09:57 Freq: Status: Active Protocol: .DittoLilia Activity Type Activity Date Activity User E-sign Co-sign Detail Recorded Client Recorded Date Recorded By Document 01/15/23 09:58 [id number] 01/15/23 10:10 Edit Result 01/15/23 09:58 JF (1) [id number] 01/15/23 10:16 Document 01/15/23 10:16 JF [id number] 01/15/23 10:17 Document 01/18/23 11:47 RB [id number] 01/18/23 11:49 RB Document 01/22/23 10:18 DL [id number] 01/22/23 10:30 DL Document 01/29/23 08:34 DL Desktop 01/29/23 08:42 DL (1) Left - Posterior Tibial Palpable => Yes - Posterior Tibial Doppler => Multiphasic - Dorsalis Pedis Palpable => Yes - Dorsalis Pedis Doppler => Multiphasic Right - Posterior Tibial Palpable => Yes - Posterior Tibial Doppler => Multiphasic - Dorsalis Pedis Palpable => Yes - Dorsalis Pedis Doppler => Multiphasic 01/15/23 01/15/23 01/18/23 09:58 10:16 11:47 - Today's Visit Information Type of service Initial Visit Nurse-only Visit Arrival Mode Ambulatory, Ambulatory Wheelchair Transfer Assistance None Patient Identification Verified (Name & Yes Yes ) Patient Requires Transmission-Based No No Precautions Height and Weight Height 6 ft 1 in Weight 372 lb Weight in Pounds 372.0 lbs Body Mass Index (BMI) 49.1 49.1 49.1 BMI Classification Obese Obese Obese BSA - Nabil 2.80 Vital Signs Temperature (97.8 F-99.1 F) 98.4 F 96 F L Temperature Source Temporal Temporal Pulse Rate (60-100) 83 68 Pulse Location Apical Monitor Respiratory Rate (12-18) 16 18 Respiratory rate source Observation Observation Blood Pressure (90/60-120/80) 161/88 H 181/88 H Blood Pressure Mean 112 119 Source Monitor Monitor Position Semi-Fowlers Sitting Blood Pressure Location Left Arm Left Arm History Since Last Visit- (Skip if this is Patient's initial visit) Have you changed medications since your last visit? Any new allergies or adverse reactions Had a fall/change in ADL's that may increase risk of falls Signs or symptoms of abuse and/or neglect since last visit Have you been in the hospital since your last visit? Has dressing in place as prescribed Has compression in place as prescribed Has offloadiing in place as prescribed Experienced any changes in pain level or management Left Footwear Regular Shoe Right Footwear Regular Shoe Pain Scale: 0-10 Numeric Is Patient Pain Free? Yes Yes Yes Lower Extremity Assessment/ Foot Assessment/ Toe Nail Assessment Left -Posterior Tibial Palpable Yes -Posterior Tibial Doppler Multiphasic -Dorsalis Pedis Palpable Yes -Dorsalis Pedis Doppler Multiphasic Right -Posterior Tibial Palpable Yes -Posterior Tibial Doppler Multiphasic -Dorsalis Pedis Palpable Yes -Dorsalis Pedis Doppler Multiphasic Communication Assessment Preferred language Czech Special Weapons And Tactics Officer Required No Able to Read Yes Able to Write Yes Communication Tools None Right Hearing Abillity Hard of Hearing Left Hearing Abillity Normal Visual Assistive Devices Glasses Teaching Assessment Preferences Verbal,Audio/ Visual, Demonstration Barriers to Learning None Readiness To Learn Excellent Willingness to Engage in Self Management High Activies Readiness to Engage in Self Management High Activities Anxiety Level Anxious Cooperation Cooperative Perception Coherent Interest in Health Problem Asks Questions Education Importance Acknowledges Need Does Patient Smoke tobacco or other No substances Smoking Status Never smoker Is Patient Diabetic No Functional Assessment Recent Decline in Ability to Perform Ambulation Assistive Device With Patient walker Culture/Scientologist/Dry End Operator Cultural/Scientologist Needs that may affect No Treatment Plan Would you allow our hospital [facility] to No meet you for the purpose of spiritual/ emotional support? Dry End Operator to contact place of mu-ism No Teaching: Wound Center [facility] Orientation/ Contacting Physician -Person Taught Patient -Teaching Method Discussion, Demonstration -Response to teaching Return demonstration, Verbalize understanding 01/22/23 01/29/23 10:18 08:34 - Today's Visit Information Type of service Follow-up Visit Follow-up Visit (Physician/[employer] PROFESSIONAL (Physician/[employer] PROFESSIONAL ) ) Arrival Mode Ambulatory, Ambulatory Walker Transfer Assistance None None Patient Identification Verified (Name & Yes Yes ) Patient Requires Transmission-Based No No Precautions Height and Weight Height Weight Weight in Pounds Body Mass Index (BMI) 49.1 49.1 BMI Classification Obese Obese BSA - Nabil Vital Signs Temperature (97.8 F-99.1 F) 98 F 96.8 F L Temperature Source Temporal Temporal Pulse Rate (60-100) 80 70 Pulse Location Monitor Respiratory Rate (12-18) 20 H 22 H Respiratory rate source Observation Observation Blood Pressure (90/60-120/80) 157/83 H 133/86 H Blood Pressure Mean 107 101 Source Monitor Monitor Position Blood Pressure Location History Since Last Visit- (Skip if this is Patient's initial visit) Have you changed medications since your No No last visit? Any new allergies or adverse reactions No No Had a fall/change in ADL's that may No No increase risk of falls Signs or symptoms of abuse and/or No No neglect since last visit Have you been in the hospital since your No No last visit? Has dressing in place as prescribed Yes Yes Has compression in place as prescribed Yes Yes Has offloadiing in place as prescribed N/A N/A Experienced any changes in pain level or No No management Left Footwear Right Footwear Pain Scale: 0-10 Numeric Is Patient Pain Free? Yes Yes Lower Extremity Assessment/ Foot Assessment/ Toe Nail Assessment Left -Posterior Tibial Palpable -Posterior Tibial Doppler -Dorsalis Pedis Palpable -Dorsalis Pedis Doppler Right -Posterior Tibial Palpable -Posterior Tibial Doppler -Dorsalis Pedis Palpable -Dorsalis Pedis Doppler Communication Assessment Preferred measurement operator Required Able to Read Able to Write Communication Tools Right Hearing Abillity Left Hearing Abillity Visual Assistive Devices Teaching Assessment Preferences Barriers to Learning Readiness To Learn Willingness to Engage in Self Management Activies Readiness to Engage in Self Management Activities Anxiety Level Cooperation Perception Interest in Health Problem Education Importance Does Patient Smoke tobacco or other substances Smoking Status Is Patient Diabetic Functional Assessment Recent Decline in Ability to Perform Assistive Device With Patient Culture/Scientologist/Dry End Operator Cultural/Scientologist Needs that may affect Treatment Plan Would you allow our hospital [facility] to meet you for the purpose of spiritual/ emotional support? Dry End Operator to contact place of mu-ism Teaching: Wound Center [facility] Orientation/ Contacting Physician -Person Taught -Teaching Method -Response to teaching - Nurse 1 - General Ulcer Measurement Start: 01/15/23 09:57 Freq: Status: Active Protocol: Activity Type Activity Date Activity User E-sign Co-sign Detail Recorded Client Recorded Date Recorded By Document 01/15/23 09:58 JF [id number] 01/15/23 10:10 JF Document 01/18/23 11:47 RB [id number] 01/18/23 11:49 RB Document 01/22/23 10:18 DL [id number] 01/22/23 10:30 DL Document 01/29/23 08:34 DL Desktop 01/29/23 08:42 DL 01/15/23 01/18/23 01/22/23 09:58 11:47 10:18 Wound Center Nurse 1 2-right lateral calf -Combined with other wound No -Current Size (cm) - Length 0.9 -Current Size (cm) - Width 1.3 -Current Size (cm) - Depth 0.3 -Total Square Cm 1.17 -Photo Taken Yes -Epithelialization Small 1-33% -Tunneling No -Undermining/Tunneling No -Circular Undermining No -Exudate Amt Small -Exudate Type Serosanguineous -Wound Margin Flat & Intact -Granulation Amt Medium (34-66%) -Granulation Quality Pale,[place] -Slough/Fibrin Yes -Necrosis Amt Medium (34-66%) -Necrotic Tissue Type Adherent Slough -Structure Exposed N/A -Texture (Marilynn-wound Skin Appearance) Assessed, Localized Edema -Moisture (Marilynn-wound Skin Appearance) Assessed,Dry/ Scaly -Color (Marilynn-wound Skin Appearance) Assessed, Hemosiderin Staining -Temperature (Marilynn-wound Skin No Abnormality Appearance) (Pt Warm) -Tenderness on Palpation (Marilynn-wound No Skin Appearance) -Ulcer Cleansing Rinsed/ Irrigated with Saline -Foul Odor after Cleansing No -Anesthetic Used 5% Lidocaine Gel #3 L Shah -Current Size (cm) - Length 1.6 -Current Size (cm) - Width 1.4 -Current Size (cm) - Depth 0.1 -Total Square Cm 2.24 -Photo Taken Yes -Exudate Amt Small -Exudate Type Serosanguineous -Wound Margin Distinct, Outline Attached -Granulation Amt Large (67-100%) -Granulation Quality [place] -Necrosis Amt None Present (0 %) -Structure Exposed N/A -Texture (Marilynn-wound Skin Appearance) Scarring -Moisture (Marilynn-wound Skin Appearance) Weeping -Color (Marilynn-wound Skin Appearance) Hemosiderin Staining -Temperature (Marilynn-wound Skin No Abnormality Appearance) (Pt Warm) -Tenderness on Palpation (Marilynn-wound No Skin Appearance) -Ulcer Cleansing Not Cleansed -Foul Odor after Cleansing No -Anesthetic Used 5% Lidocaine Gel 1-right medial calf cluster -Combined with other wound No -Current Size (cm) - Length 0.8 0.1 -Current Size (cm) - Width 2.1 0.1 -Current Size (cm) - Depth 0.2 0.1 -Total Square Cm 1.68 0.01 -Photo Taken Yes -Epithelialization Small 1-33% -Tunneling No -Undermining/Tunneling No -Circular Undermining No -Classification - Thickness Full Thickness without Exposed Support Structure -Exudate Amt Small None Present -Exudate Type Serosanguineous -Wound Margin Flat & Intact Flat & Intact -Granulation Amt Small (1-33%) Large (67-100%) -Granulation Quality Pale Red -Slough/Fibrin Yes -Necrosis Amt Small (1-33%) None Present (0 %) -Necrotic Tissue Type Adherent Slough -Structure Exposed N/A N/A -Texture (Marilynn-wound Skin Appearance) Assessed, Scarring Localized Edema -Moisture (Marilynn-wound Skin Appearance) Assessed,Dry/ Dry/Scaly Scaly -Color (Marilynn-wound Skin Appearance) Assessed, Hemosiderin Hemosiderin Staining Staining -Temperature (Marilynn-wound Skin No Abnormality No Abnormality Appearance) (Pt Warm) (Pt Warm) -Tenderness on Palpation (Marilynn-wound No No Skin Appearance) -Ulcer Cleansing Rinsed/ Soap and Water Irrigated with Saline -Foul Odor after Cleansing No No -Anesthetic Used 5% Lidocaine 5% Lidocaine Gel Gel Lower Limb Edema Present Yes Yes Right Calf (cm) 48.7 49.9 45 Right Ankle (cm) 32.3 30.2 30 Left Calf (cm) 51.2 49.5 46 Left Ankle (cm) 31.5 30 29.5 Left Foot (cm) 01/29/23 08:34 Wound Center Nurse 1 2-right lateral calf -Combined with other wound -Current Size (cm) - Length -Current Size (cm) - Width -Current Size (cm) - Depth -Total Square Cm -Photo Taken -Epithelialization -Tunneling -Undermining/Tunneling -Circular Undermining -Exudate Amt -Exudate Type -Wound Margin -Granulation Amt -Granulation Quality -Slough/Fibrin -Necrosis Amt -Necrotic Tissue Type -Structure Exposed -Texture (Marilynn-wound Skin Appearance) -Moisture (Marilynn-wound Skin Appearance) -Color (Marilynn-wound Skin Appearance) -Temperature (Marilynn-wound Skin Appearance) -Tenderness on Palpation (Marilynn-wound Skin Appearance) -Ulcer Cleansing -Foul Odor after Cleansing -Anesthetic Used #3 L Shah -Current Size (cm) - Length 0.6 -Current Size (cm) - Width 0.7 -Current Size (cm) - Depth 0.1 -Total Square Cm 0.42 -Photo Taken -Exudate Amt Medium -Exudate Type Serosanguineous -Wound Margin Distinct, Outline Attached -Granulation Amt Large (67-100%) -Granulation Quality [place] -Necrosis Amt None Present (0 %) -Structure Exposed N/A -Texture (Marilynn-wound Skin Appearance) Scarring -Moisture (Marilynn-wound Skin Appearance) No Abnormality -Color (Marilynn-wound Skin Appearance) No Abnormality -Temperature (Marilynn-wound Skin No Abnormality Appearance) (Pt Warm) -Tenderness on Palpation (Marilynn-wound Skin Appearance) -Ulcer Cleansing Soap and Water -Foul Odor after Cleansing No -Anesthetic Used 5% Lidocaine Gel 1-right medial calf cluster -Combined with other wound -Current Size (cm) - Length 0.7 -Current Size (cm) - Width 5.4 -Current Size (cm) - Depth 0.2 -Total Square Cm 3.78 -Photo Taken -Epithelialization -Tunneling -Undermining/Tunneling -Circular Undermining -Classification - Thickness -Exudate Amt Small -Exudate Type -Wound Margin Distinct, Outline Attached -Granulation Amt Large (67-100%) -Granulation Quality Red -Slough/Fibrin -Necrosis Amt Small (1-33%) -Necrotic Tissue Type Adherent Slough -Structure Exposed N/A -Texture (Marilynn-wound Skin Appearance) Scarring -Moisture (Marilynn-wound Skin Appearance) No Abnormality -Color (Marilynn-wound Skin Appearance) Hemosiderin Staining -Temperature (Marilynn-wound Skin No Abnormality Appearance) (Pt Warm) -Tenderness on Palpation (Marilynn-wound No Skin Appearance) -Ulcer Cleansing Soap and Water -Foul Odor after Cleansing No -Anesthetic Used 5% Lidocaine Gel Lower Limb Edema Present Right Calf (cm) 48.3 Right Ankle (cm) 30.6 Left Calf (cm) 48.4 Left Ankle (cm) Left Foot (cm) 29.2 WC - Nurse 2 - General Ulcer CM Notes Start: 01/15/23 09:57 Freq: Status: Active Protocol: Activity Type Activity Date Activity User E-sign Co-sign Detail Recorded Client Recorded Date Recorded By Document 01/15/23 14:11 PL [id number] 01/15/23 14:13 PL Document 01/22/23 13:15 PL [id number] 01/22/23 13:17 PL 01/15/23 01/22/23 14:11 13:15 Wound Center Nurse 2 2-right lateral calf -Procedure Performed No -Wound/Ulcer Outcome Healed- Epithelialized #3 L Shah -Time 10:46 -Correct Patient Yes -Correct Side, Site, Position Yes -Correct Procedure Yes -Procedure Performed Yes -Type of Procedure Debridement -Clinical Debridement Subcutaneous -Tissue Removed Subcutaneous -Post Debridement (cm) - Length 1.7 -Post Debridement (cm) - Width 1.5 -Post Debridement (cm) - Depth 0.1 -Total Square (Post) (cm) 2.55 -Area of Debridement (cm) - Length 1.7 -Area of Debridement (cm) - Width 1.5 -Total Square (Area) (cm) 2.55 -Tunneling No -Undermining/Tunneling No -Circular Undermining No -Wound/Ulcer Outcome Not Healed -Ulcer Cleansing Rinsed/ Irrigated with Saline -Foul Odor after Cleansing No -Bioengineered Tissue No -Bleeding Controlled with Pressure -Treatment Response Procedure Tolerated Well -Debridement - Subq, 1st 20sq cm No 1-right medial calf cluster -Time 10:30 10:46 -Correct Patient Yes Yes -Correct Side, Site, Position Yes Yes -Correct Procedure Yes Yes -Procedure Performed Yes Yes -Type of Procedure Debridement Debridement -Clinical Debridement Subcutaneous Subcutaneous -Tissue Removed Subcutaneous Subcutaneous -Post Debridement (cm) - Length 0.8 0.1 -Post Debridement (cm) - Width 2.1 0.1 -Post Debridement (cm) - Depth 0.2 0.1 -Total Square (Post) (cm) 1.68 0.01 -Area of Debridement (cm) - Length 0.8 0.1 -Area of Debridement (cm) - Width 2.1 0.1 -Total Square (Area) (cm) 1.68 0.01 -Tunneling No No -Undermining/Tunneling No No -Circular Undermining No No -Wound/Ulcer Outcome Not Healed Not Healed -Ulcer Cleansing Rinsed/ Rinsed/ Irrigated with Irrigated with Saline Saline -Foul Odor after Cleansing No No -Bioengineered Tissue No No -Bleeding Controlled with Pressure Pressure -Treatment Response Procedure Procedure Tolerated Well Tolerated Well -Debridement - Subq, 1st 20sq cm Yes Yes Pain Scale: 0-10 Numeric Is Patient Pain Free? Yes Yes - Nurse 3 - General Ulcer D/C NN Start: 01/15/23 09:57 Freq: Status: Active Protocol: Activity Type Activity Date Activity User E-sign Co-sign Detail Recorded Client Recorded Date Recorded By Document 01/15/23 10:52 DL [id number] 01/15/23 10:54 DL Document 01/18/23 11:47 RB [id number] 01/18/23 11:49 RB Document 01/22/23 11:04 [facility] [id number] 01/22/23 11:05 [facility] Document 01/29/23 08:52 DL Desktop 01/29/23 08:53 DL Edit Result 01/29/23 08:52 DL (1) Desktop 01/29/23 09:03 DL (1) 1-right medial calf cluster - Other Dressing => promogran - Primary Dressing Covered/Secured with => Dry Gauze,Secured => with Tape ble - Tubular Bandage => Double Layer - Size of Tubigrip Used => Size F - Size F ($) => 2 Ambulatory Status Ambulatory, => Ambulatory,Walker Crutches => 09/05/23 09/08/23 09/12/23 10:52 11:47 11:04 Wound Care Center Nurse 3 2-right lateral calf -Ulcer Cleansing Rinsed/ Irrigated with Saline -Foul Odor after Cleansing No -Primary Dressing Applied Promogran -Primary Dressing Covered/Secured with Dry Gauze -Promogran 1 #3 L Shah -Ulcer Cleansing Rinsed/ Irrigated with Saline -Foul Odor after Cleansing No -Primary Dressing Applied Promogran -Primary Dressing Covered/Secured with Dry Gauze, Secured with Tape -Promogran 2 1-right medial calf cluster -Ulcer Cleansing Rinsed/ Wound Cleanser Rinsed/ Irrigated with Irrigated with Saline Saline -Foul Odor after Cleansing No No -Primary Dressing Applied Promogran -Other Dressing promgran promogran -Primary Dressing Covered/Secured with Dry Gauze Dry Gauze Dry Gauze, Secured with Tape -Promogran 0 ble -Tubular Bandage Single Layer -Size of Tubigrip Used Size F -Size F ($) 2 liyah -Multi-Layered Wrap Application Unna Boot - Unna Boot - Bilateral ($) Bilateral ($) -Tubular Bandage Single Layer -Size of Tubigrip Used Size E -Size E ($) 2 Treatment Response Procedure Procedure Procedure Tolerated Well Tolerated Well Tolerated Well Vital Signs Temperature (97.8 F-99.1 F) 96 F L Temperature Source Temporal Pulse Rate (60-100) 68 Pulse Location Monitor Respiratory Rate (12-18) 18 Respiratory rate source Observation Blood Pressure (90/60-120/80) 181/88 H Blood Pressure Mean 119 Source Monitor Position Sitting Blood Pressure Location Left Arm Pain Scale: 0-10 Numeric Is Patient Pain Free? Yes Yes Yes WC - Visit Discharge Discharge Condition Stable Stable Stable Ambulatory Status Ambulatory Ambulatory Ambulatory, Walker Transportation Private Auto Private Auto Private Auto Accompanied by Medication Reconcilliation completed & No provided to patient/care provider Clinical Summary of Care Provided Yes 01/29/23 08:52 Wound Care Center Nurse 3 2-right lateral calf -Ulcer Cleansing -Foul Odor after Cleansing -Primary Dressing Applied -Primary Dressing Covered/Secured with -Promogran #3 L Shah -Ulcer Cleansing Rinsed/ Irrigated with Saline -Foul Odor after Cleansing No -Primary Dressing Applied Promogran -Primary Dressing Covered/Secured with Dry Gauze, Secured with Tape -Promogran 1 1-right medial calf cluster -Ulcer Cleansing -Foul Odor after Cleansing -Primary Dressing Applied -Other Dressing promogran -Primary Dressing Covered/Secured with Dry Gauze, Secured with Tape -Promogran ble -Tubular Bandage Double Layer -Size of Tubigrip Used Size F -Size F ($) 2 liyah -Multi-Layered Wrap Application -Tubular Bandage -Size of Tubigrip Used -Size E ($) Treatment Response Vital Signs Temperature (97.8 F-99.1 F) Temperature Source Pulse Rate (60-100) Pulse Location Respiratory Rate (12-18) Respiratory rate source Blood Pressure (90/60-120/80) Blood Pressure Mean Source Position Blood Pressure Location Pain Scale: 0-10 Numeric Is Patient Pain Free? Yes WC - Visit Discharge Discharge Condition Stable Ambulatory Status Ambulatory, Walker Transportation Private Auto Accompanied by Medication Reconcilliation completed & Yes provided to patient/care provider Clinical Summary of Care Provided Yes Additional Wound Wound debrided: Ulceration of the left lateral calf Laterality: Left Type of Debridement: Excisional debridement Anesthesia Used: 5% Lidocaine Gel Depth: Down to and including healthy tissue and in the subcutaneous layer Percentage of wound debrided: 100 Instrument Used: 3mm curette Tissue Removed: Bioburden and nonviable tissue Severity: Fat Layer Exposed Amount of bleeding with debridement: Mild Bleeding Controlled with: Compression and gauze Patient tolerated procedure: Patient tolerated procedure well Assessment/Plan Assessment/Plan (1) Venous stasis ulcer of right lower leg with edema of right lower leg: CODE(S): I83.019 - Varicose veins of right lower extremity with ulcer of unspecified site; I83.891 - Varicose veins of right lower extremity with other complications; L97.919 - Non-pressure chronic ulcer of unspecified part of right lower leg with unspecified severity; R60.0 - Localized edema (2) Venous stasis ulcer of left lower leg with edema of left lower leg: CODE(S): I83.029 - Varicose veins of left lower extremity with ulcer of unspecified site; I83.892 - Varicose veins of left lower extremity with other complications; L97.929 - Non-pressure chronic ulcer of unspecified part of left lower leg with unspecified severity; R60.0 - Localized edema (3) Chronic venous hypertension w/ulcer and inflammation involv right side: CODE(S): I87.331 - Chronic venous hypertension (idiopathic) with ulcer and inflammation of right lower extremity (4) Right leg swelling: CODE(S): M79.89 - Other specified soft tissue disorders (5) Leg edema, right: CODE(S): R60.0 - Localized edema (6) Lymphedema: CODE(S): I89.0 - Lymphedema, not elsewhere classified (7) 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: CODE(S): I87.039 - Postthrombotic syndrome with ulcer and inflammation of unspecified lower extremity (8) History of deep vein thrombosis: CODE(S): Z86.718 - Personal history of other venous thrombosis and embolism (9) History of pulmonary embolism: CODE(S): Z86.711 - Personal history of pulmonary embolism (10) Varicose veins with ulcer and inflammation: CODE(S): I83.209 - Varicose veins of unspecified lower extremity with both ulcer of unspecified site and inflammation; L97.909 - Non-pressure chronic ulcer of unspecified part of unspecified lower leg with unspecified severity (11) Morbid obesity with BMI of 45.0-49.9, adult: CODE(S): E66.01 - Morbid (severe) obesity due to excess calories; Z68.42 - Body mass index [BMI] 45.0-49.9, adult (12) Hypertension: CODE(S): I10 - Essential (primary) hypertension (13) Diabetes mellitus: CODE(S): E11.9 - Type 2 diabetes mellitus without complications (14) Sleep apnea in adult: CODE(S): G47.30 - Sleep apnea, unspecified (15) Left leg swelling: CODE(S): M79.89 - Other specified soft tissue disorders (16) Leg edema, left: CODE(S): R60.0 - Localized edema (17) History of bunionectomy: CODE(S): Z98.890 - Other specified postprocedural states (18) History of tonsillectomy: CODE(S): Z90.89 - Acquired absence of other organs (19) Lipodermatosclerosis of both lower extremities: CODE(S): I83.11 - Varicose veins of right lower extremity with inflammation; I83.12 - Varicose veins of left lower extremity with inflammation (20) Dependent edema: CODE(S): R60.9 - Edema, unspecified PLAN: Plan This is a 67-year-old obese male with a history of ulcerations in his lower extremities. He presented with 2 ulcerations on the right posterior calf, which had been present for several months. He now also has an ulceration on the left lateral calf. The patient has a history of lower extremity swelling and edema. He is relatively inactive. He spends a great deal of each day sitting and inactive. We are to continue a protocol of conservative treatment measures. A lengthy discussion has been undertaken with the patient. He has been encouraged to enhance his activity is much as possible. He has been discouraged from prolonged idle sitting. Leg elevation has been encouraged as well. Elevation is to be to heart level, or higher, is much as possible, and during both daytime and nighttime hours. The patient has been encouraged to sleep on a flat mattress at night. Thus far, the patient has been only moderately compliant with leg elevation. We are to continue compression to the lower extremities by means of Tubigrip's, doubled, for a total of 30 to 40 mmHg compression. These will be donned on a daily basis. Promogran will be applied topically to all ulcerations on a daily basis. The patient has been instructed in the appropriate means of application. Ultimately, we will consider transition to the use of graduated compression stockings or Velcro compression garments of at least 20 to 30 mmHg compression for long-term use. Weight loss has also been recommended. The patient owns pneumatic mechanical compression pumps, and has been encouraged to use these 2-3 times daily for approximately 1 hour each session. The patient is to return in 1 week for reassessment. Of note, the patient failed to receive Promogran, which has been ordered. Therefore, he has been using Neosporin topically for the last week or so. This, as well as a lack of proper lower extremity elevation, may account for a lack of significant progress recently. Total time: 26 minutes
[2023-02-05 10:08] VITALS: BP 156/86; PULSE 68; RESP 20; TEMP 36.1; BMI 49.1
--- NOTE | 2023-02-05 12:33 | HP.PCM_ITS ---
History of Present Illness Date of Service: 02/05/23 Chief Complaint: Ulcerations, right posterior calf History of Wound: This is a 67-year-old obese male who presented with 2 ulcerations on the right posterior calf. The patient claimed to have had ulcerations in his lower extremities intermittently for many years. The current ulcerations had been present for several months. They occurred spontaneously, after the formation of blisters. The patient is inactive. Ambulation is limited, and he requires a cane or walker for mobility. He is morbidly obese. He sleeps in a chair. He wears graduated compression stockings of less than 20 to 30 mmHg compression. He also has pneumatic compression pumps, which he was not currently using. He has chronic swelling, edema, and lymphedema in his lower extremities. He spends a good part of each day sitting while watching television. The patient had recently undergone a venous duplex examination which revealed valvular incompetence involving the right great saphenous vein. A computerized tomography angiogram/venogram revealed no evidence of iliac vein obstruction. The patient does not smoke or drink. He is single and lives alone. 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 Right leg swelling Sleep apnea in adult Varicose veins with ulcer and inflammation Venous stasis ulcer of left lower leg with edema of left lower leg Venous stasis ulcer of right lower leg with edema of right lower leg Home Medications bumetanide 2 mg tablet 2 mg PO DAILY 01/15/23 [History Last Taken Unknown] fluoxetine 40 mg capsule 40 mg PO DAILY 01/15/23 [History Last Taken Unknown] lisinopril 20 mg tablet 20 mg PO DAILY 01/15/23 [History Last Taken Unknown] potassium citrate 10 mEq (1,080 mg) tablet,extended release 10 meq PO DAILY 01/15/23 [History Last Taken Unknown] valproic acid 250 mg capsule 250 mg PO TID 01/15/23 [History Last Taken Unknown] Allergy/AdvReac Type Severity Reaction Status Date / Time No Known Allergies Allergy Verified 01/15/23 10:10 Family History other Surgical History History of bunionectomy History of tonsillectomy Social History Smoking Status: Never smoker Vital Signs Vital Signs Vital Signs: 02/05/23 10:08 Temperature 97 F L Temperature Source Temporal Pulse Rate 68 Respiratory Rate 20 H Blood Pressure 156/86 H Blood Pressure Mean 109 Blood Pressure Source Monitor Blood Pressure Position Sitting Blood Pressure Location Left Arm Oxygen Delivery Method Room Air Weight Weight: 372 lb Body Mass Index (BMI) 49.1 Physical Exam Const alert, oriented x3, no apparent distress, no limitations and well nourished Constitutional Narrative: The patient is morbidly obese. His BMI is 49.1. General Appearance: cooperative, comfortable, well kempt and well developed Orientation / Consciousness: awake, oriented to person, oriented to place and oriented to time HEENT normocephalic, head/scalp atraumatic and hearing grossly normal bilaterally Head and Scalp: normal to inspection, normocephalic and atraumatic External Ear: external ears normal Eyes PERRL and EOMs intact bilaterally General Eye: normal appearance of both eyes Resp normal respiratory effort, normal air movement, no retractions and no use of accessory muscles Effort and Inspection: able to speak in complete sentences Extremity no calf tenderness General Extremity: Negative for clubbing or cyanosis Skin Wound Narrative: A small ulceration is noted on the patient's right posterior calf. There is also an ulceration on the left lateral calf. Dimensions of each are documented elsewhere. There is no sign of infection or cellulitis. There is a small amount of bioburden involving each ulceration. Moderate swelling and edema are noted in the patient's lower extremities bilaterally. Lipodermatosclerosis and hyperpigmentation are noted bilaterally in the gaiter areas. Multiphasic, strong ankle pulses are noted bilaterally. Neuro oriented x3, CN's II-XII intact bilaterally, moves all extremities and no focal motor deficits Sensorium / Orientation: awake, alert, oriented to person, oriented to place and oriented to time Psych Appearance: grossly normal and appropriate Attitude: calm Activity / Motor Behavior: appropriate eye contact Speech: normal speech Mood & Affect: euthymic mood Thought Process: normal thought process Thought Content: normal thought content Attention / Concentration: attention grossly intact Debridement Note Debridement Note Wound debrided: Ulceration of the right posterior calf Laterality: Right Type of Debridement: Excisional debridement Anesthesia Used: 5% Lidocaine Gel Depth: Down to and including healthy tissue and in the subcutaneous layer Percentage of wound debrided: 100 Instrument Used: 3mm curette Tissue Removed: Bioburden Severity: Fat Layer Exposed Amount of bleeding with debridement: Mild Bleeding Controlled with: Compression and gauze Patient tolerated procedure: Patient tolerated procedure well Post-Debridement Measurements and Additional Note: Post-Debridement Measurements/Treatment - Nurse 1 - General Ulcer Assessment Start: 01/15/23 09:57 Freq: Status: Active Protocol: JACKIE Activity Type Activity Date Activity User E-sign Co-sign Detail Recorded Client Recorded Date Recorded By Document 01/15/23 09:58 [id number] 01/15/23 10:10 JF Edit Result 01/15/23 09:58 JF (1) [id number] 01/15/23 10:16 JF Document 01/15/23 10:16 JF [id number] 01/15/23 10:17 JF Document 01/18/23 11:47 RB [id number] 01/18/23 11:49 RB Document 01/22/23 10:18 DL [id number] 01/22/23 10:30 DL Document 01/29/23 08:34 DL Desktop 01/29/23 08:42 DL Document 02/05/23 10:08 BMF Desktop 02/05/23 10:16 BMF (1) Left - Posterior Tibial Palpable => Yes - Posterior Tibial Doppler => Multiphasic - Dorsalis Pedis Palpable => Yes - Dorsalis Pedis Doppler => Multiphasic Right - Posterior Tibial Palpable => Yes - Posterior Tibial Doppler => Multiphasic - Dorsalis Pedis Palpable => Yes - Dorsalis Pedis Doppler => Multiphasic 01/15/23 01/15/23 01/18/23 09:58 10:16 11:47 - Today's Visit Information Type of service Initial Visit Nurse-only Visit Arrival Mode Ambulatory, Ambulatory Wheelchair Transfer Assistance None Patient Identification Verified (Name & Yes Yes ) Patient Requires Transmission-Based No No Precautions Height and Weight Height 6 ft 1 in Weight 372 lb Weight in Pounds 372.0 lbs Body Mass Index (BMI) 49.1 49.1 49.1 BMI Classification Obese Obese Obese BSA - Nabil 2.80 Vital Signs Temperature (97.8 F-99.1 F) 98.4 F 96 F L Temperature Source Temporal Temporal Pulse Rate (60-100) 83 68 Pulse Location Apical Monitor Respiratory Rate (12-18) 16 18 Respiratory rate source Observation Observation Oxygen Delivery Method Blood Pressure (90/60-120/80) 161/88 H 181/88 H Blood Pressure Mean 112 119 Source Monitor Monitor Position Semi-Fowlers Sitting Blood Pressure Location Left Arm Left Arm History Since Last Visit- (Skip if this is Patient's initial visit) Have you changed medications since your last visit? Any new allergies or adverse reactions Had a fall/change in ADL's that may increase risk of falls Signs or symptoms of abuse and/or neglect since last visit Have you been in the hospital since your last visit? Has dressing in place as prescribed Has compression in place as prescribed Has offloadiing in place as prescribed Experienced any changes in pain level or management Left Footwear Regular Shoe Right Footwear Regular Shoe Pain Scale: 0-10 Numeric Is Patient Pain Free? Yes Yes Yes Lower Extremity Assessment/ Foot Assessment/ Toe Nail Assessment Left -Posterior Tibial Palpable Yes -Posterior Tibial Doppler Multiphasic -Dorsalis Pedis Palpable Yes -Dorsalis Pedis Doppler Multiphasic Right -Posterior Tibial Palpable Yes -Posterior Tibial Doppler Multiphasic -Dorsalis Pedis Palpable Yes -Dorsalis Pedis Doppler Multiphasic Communication Assessment Preferred language [place] Allergist/Immunologist Physician Required No Able to Read Yes Able to Write Yes Communication Tools None Right Hearing Abillity Hard of Hearing Left Hearing Abillity Normal Visual Assistive Devices Glasses Teaching Assessment Preferences Verbal,Audio/ Visual, Demonstration Barriers to Learning None Readiness To Learn Excellent Willingness to Engage in Self Management High Activies Readiness to Engage in Self Management High Activities Anxiety Level Anxious Cooperation Cooperative Perception Coherent Interest in Health Problem Asks Questions Education Importance Acknowledges Need Does Patient Smoke tobacco or other No substances Smoking Status Never smoker Is Patient Diabetic No Functional Assessment Recent Decline in Ability to Perform Ambulation Assistive Device With Patient walker Culture/Confucianism/Bundle Tier And Labeler Cultural/Confucianism Needs that may affect No Treatment Plan Would you allow our [facility] flanger to No meet you for the purpose of spiritual/ emotional support? Bundle Tier And Labeler to contact place of druze No Teaching: Wound Center [facility] Orientation/ Contacting Physician -Person Taught Patient -Teaching Method Discussion, Demonstration -Response to teaching Return demonstration, Verbalize understanding 01/22/23 01/29/23 02/05/23 10:18 08:34 10:08 - Today's Visit Information Type of service Follow-up Visit Follow-up Visit Follow-up Visit (Physician/WIND FARM SUPPORT SPECIALIST (Physician/WIND FARM SUPPORT SPECIALIST (Physician/WIND FARM SUPPORT SPECIALIST ) ) ) Arrival Mode Ambulatory, Ambulatory Ambulatory, Walker Walker Transfer Assistance None None None Patient Identification Verified (Name & Yes Yes Yes ) Patient Requires Transmission-Based No No No Precautions Height and Weight Height Weight Weight in Pounds Body Mass Index (BMI) 49.1 49.1 49.1 BMI Classification Obese Obese Obese BSA - Nabil Vital Signs Temperature (97.8 F-99.1 F) 98 F 96.8 F L 97 F L Temperature Source Temporal Temporal Temporal Pulse Rate (60-100) 80 70 68 Pulse Location Monitor Monitor Respiratory Rate (12-18) 20 H 22 H 20 H Respiratory rate source Observation Observation Observation Oxygen Delivery Method Room Air Blood Pressure (90/60-120/80) 157/83 H 133/86 H 156/86 H Blood Pressure Mean 107 101 109 Source Monitor Monitor Monitor Position Sitting Blood Pressure Location Left Arm History Since Last Visit- (Skip if this is Patient's initial visit) Have you changed medications since your No No No last visit? Any new allergies or adverse reactions No No No Had a fall/change in ADL's that may No No No increase risk of falls Signs or symptoms of abuse and/or No No No neglect since last visit Have you been in the hospital since your No No No last visit? Has dressing in place as prescribed Yes Yes Yes Has compression in place as prescribed Yes Yes Yes Has offloadiing in place as prescribed N/A N/A N/A Experienced any changes in pain level or No No No management Left Footwear Regular Shoe Right Footwear Regular Shoe Pain Scale: 0-10 Numeric Is Patient Pain Free? Yes Yes Yes Lower Extremity Assessment/ Foot Assessment/ Toe Nail Assessment Left -Posterior Tibial Palpable -Posterior Tibial Doppler -Dorsalis Pedis Palpable -Dorsalis Pedis Doppler Right -Posterior Tibial Palpable -Posterior Tibial Doppler -Dorsalis Pedis Palpable -Dorsalis Pedis Doppler Communication Assessment Preferred language asst Required Able to Read Able to Write Communication Tools Right Hearing Abillity Left Hearing Abillity Visual Assistive Devices Teaching Assessment Preferences Barriers to Learning Readiness To Learn Willingness to Engage in Self Management Activies Readiness to Engage in Self Management Activities Anxiety Level Cooperation Perception Interest in Health Problem Education Importance Does Patient Smoke tobacco or other substances Smoking Status Is Patient Diabetic Functional Assessment Recent Decline in Ability to Perform Assistive Device With Patient Culture/Confucianism/Bundle Tier And Labeler Cultural/Confucianism Needs that may affect Treatment Plan Would you allow our hospital flanger to meet you for the purpose of spiritual/ emotional support? Bundle Tier And Labeler to contact place of druze Teaching: Wound Center [facility] Orientation/ Contacting Physician -Person Taught -Teaching Method -Response to teaching [facility] Nurse 1 - General Ulcer Measurement Start: 01/15/23 09:57 Freq: Status: Active Protocol: Activity Type Activity Date Activity User E-sign Co-sign Detail Recorded Client Recorded Date Recorded By Document 01/15/23 09:58 [id number] 01/15/23 10:10 Document 01/18/23 11:47 RB [id number] 01/18/23 11:49 RB Document 01/22/23 10:18 DL [id number] 01/22/23 10:30 DL Document 01/29/23 08:34 DL Desktop 01/29/23 08:42 DL Document 02/05/23 10:08 BMF Desktop 02/05/23 10:16 BMF 01/15/23 01/18/23 01/22/23 09:58 11:47 10:18 Wound Center Nurse 1 1-right medial calf cluster -Combined with other wound No -Current Size (cm) - Length 0.8 0.1 -Current Size (cm) - Width 2.1 0.1 -Current Size (cm) - Depth 0.2 0.1 -Total Square Cm 1.68 0.01 -Photo Taken Yes -Epithelialization Small 1-33% -Tunneling No -Undermining/Tunneling No -Circular Undermining No -Classification - Thickness Full Thickness without Exposed Support Structure -Exudate Amt Small None Present -Exudate Type Serosanguineous -Wound Margin Flat & Intact Flat & Intact -Granulation Amt Small (1-33%) Large (67-100%) -Granulation Quality Pale Red -Slough/Fibrin Yes -Necrosis Amt Small (1-33%) None Present (0 %) -Necrotic Tissue Type Adherent Slough -Structure Exposed N/A N/A -Texture (Marilynn-wound Skin Appearance) Assessed, Scarring Localized Edema -Moisture (Marilynn-wound Skin Appearance) Assessed,Dry/ Dry/Scaly Scaly -Color (Marilynn-wound Skin Appearance) Assessed, Hemosiderin Hemosiderin Staining Staining -Temperature (Marilynn-wound Skin No Abnormality No Abnormality Appearance) (Pt Warm) (Pt Warm) -Tenderness on Palpation (Marilynn-wound No No Skin Appearance) -Ulcer Cleansing Rinsed/ Soap and Water Irrigated with Saline -Foul Odor after Cleansing No No -Anesthetic Used 5% Lidocaine 5% Lidocaine Gel Gel #3 L Shah -Combined with other wound -Current Size (cm) - Length 1.6 -Current Size (cm) - Width 1.4 -Current Size (cm) - Depth 0.1 -Total Square Cm 2.24 -Photo Taken Yes -Epithelialization -Tunneling -Undermining/Tunneling -Circular Undermining -Exudate Amt Small -Exudate Type Serosanguineous -Wound Margin Distinct, Outline Attached -Granulation Amt Large (67-100%) -Granulation Quality [place] -Slough/Fibrin -Necrosis Amt None Present (0 %) -Necrotic Tissue Type -Structure Exposed N/A -Texture (Marilynn-wound Skin Appearance) Scarring -Moisture (Marilynn-wound Skin Appearance) Weeping -Color (Marilynn-wound Skin Appearance) Hemosiderin Staining -Temperature (Marilynn-wound Skin No Abnormality Appearance) (Pt Warm) -Tenderness on Palpation (Marilynn-wound No Skin Appearance) -Ulcer Cleansing Not Cleansed -Foul Odor after Cleansing No -Anesthetic Used 5% Lidocaine Gel 2-right lateral calf -Combined with other wound No -Current Size (cm) - Length 0.9 -Current Size (cm) - Width 1.3 -Current Size (cm) - Depth 0.3 -Total Square Cm 1.17 -Photo Taken Yes -Epithelialization Small 1-33% -Tunneling No -Undermining/Tunneling No -Circular Undermining No -Exudate Amt Small -Exudate Type Serosanguineous -Wound Margin Flat & Intact -Granulation Amt Medium (34-66%) -Granulation Quality Pale,[place] -Slough/Fibrin Yes -Necrosis Amt Medium (34-66%) -Necrotic Tissue Type Adherent Slough -Structure Exposed N/A -Texture (Marilynn-wound Skin Appearance) Assessed, Localized Edema -Moisture (Marilynn-wound Skin Appearance) Assessed,Dry/ Scaly -Color (Marilynn-wound Skin Appearance) Assessed, Hemosiderin Staining -Temperature (Marilynn-wound Skin No Abnormality Appearance) (Pt Warm) -Tenderness on Palpation (Marilynn-wound No Skin Appearance) -Ulcer Cleansing Rinsed/ Irrigated with Saline -Foul Odor after Cleansing No -Anesthetic Used 5% Lidocaine Gel Lower Limb Edema Present Yes Yes Right Calf (cm) 48.7 49.9 45 Right Ankle (cm) 32.3 30.2 30 Left Calf (cm) 51.2 49.5 46 Left Ankle (cm) 31.5 30 29.5 Left Foot (cm) 01/29/23 02/05/23 08:34 10:08 Wound Center Nurse 1 1-right medial calf cluster -Combined with other wound No -Current Size (cm) - Length 0.7 0.1 -Current Size (cm) - Width 5.4 0.1 -Current Size (cm) - Depth 0.2 0.1 -Total Square Cm 3.78 0.01 -Photo Taken No -Epithelialization Large 67-100% -Tunneling No -Undermining/Tunneling No -Circular Undermining No -Classification - Thickness -Exudate Amt Small None Present -Exudate Type -Wound Margin Distinct, Distinct, Outline Outline Attached Attached -Granulation Amt Large (67-100%) -Granulation Quality Red -Slough/Fibrin Yes -Necrosis Amt Small (1-33%) Small (1-33%) -Necrotic Tissue Type Adherent Slough Adherent Slough -Structure Exposed N/A -Texture (Marilynn-wound Skin Appearance) Scarring Assessed, Scarring -Moisture (Marilynn-wound Skin Appearance) No Abnormality Assessed,Dry/ Scaly -Color (Marilynn-wound Skin Appearance) Hemosiderin Assessed Staining -Temperature (Marilynn-wound Skin No Abnormality No Abnormality Appearance) (Pt Warm) (Pt Warm) -Tenderness on Palpation (Marilynn-wound No No Skin Appearance) -Ulcer Cleansing Soap and Water Rinsed/ Irrigated with Saline -Foul Odor after Cleansing No No -Anesthetic Used 5% Lidocaine 4% Lidocaine Gel Solution #3 L Shah -Combined with other wound No -Current Size (cm) - Length 0.6 0.5 -Current Size (cm) - Width 0.7 0.7 -Current Size (cm) - Depth 0.1 0.1 -Total Square Cm 0.42 0.35 -Photo Taken -Epithelialization Large 67-100% -Tunneling No -Undermining/Tunneling No -Circular Undermining No -Exudate Amt Medium None Present -Exudate Type Serosanguineous -Wound Margin Distinct, Distinct, Outline Outline Attached Attached -Granulation Amt Large (67-100%) -Granulation Quality [place] -Slough/Fibrin Yes -Necrosis Amt None Present (0 Small (1-33%) %) -Necrotic Tissue Type Eschar -Structure Exposed N/A -Texture (Marilynn-wound Skin Appearance) Scarring Assessed, Scarring -Moisture (Marilynn-wound Skin Appearance) No Abnormality Assessed -Color (Marilynn-wound Skin Appearance) No Abnormality Assessed -Temperature (Marilynn-wound Skin No Abnormality No Abnormality Appearance) (Pt Warm) (Pt Warm) -Tenderness on Palpation (Marilynn-wound No Skin Appearance) -Ulcer Cleansing Soap and Water Rinsed/ Irrigated with Saline -Foul Odor after Cleansing No Yes, Due to Product Use -Anesthetic Used 5% Lidocaine 4% Lidocaine Gel Solution 2-right lateral calf -Combined with other wound No -Current Size (cm) - Length 0.8 -Current Size (cm) - Width 0.8 -Current Size (cm) - Depth 0.3 -Total Square Cm 0.64 -Photo Taken -Epithelialization None Present -Tunneling No -Undermining/Tunneling No -Circular Undermining No -Exudate Amt Medium -Exudate Type Serous -Wound Margin Distinct, Outline Attached -Granulation Amt Small (1-33%) -Granulation Quality [place] -Slough/Fibrin Yes -Necrosis Amt Large (67-100%) -Necrotic Tissue Type Eschar -Structure Exposed -Texture (Marilynn-wound Skin Appearance) Assessed, Scarring -Moisture (Marilynn-wound Skin Appearance) Assessed -Color (Marilynn-wound Skin Appearance) Assessed -Temperature (Marilynn-wound Skin No Abnormality Appearance) (Pt Warm) -Tenderness on Palpation (Marilynn-wound No Skin Appearance) -Ulcer Cleansing Rinsed/ Irrigated with Saline -Foul Odor after Cleansing No -Anesthetic Used 4% Lidocaine Solution Lower Limb Edema Present Yes Right Calf (cm) 48.3 54.5 Right Ankle (cm) 30.6 31.8 Left Calf (cm) 48.4 52.5 Left Ankle (cm) 29.4 Left Foot (cm) 29.2 WC - Nurse 2 - General Ulcer CM Notes Start: 01/15/23 09:57 Freq: Status: Active Protocol: Activity Type Activity Date Activity User E-sign Co-sign Detail Recorded Client Recorded Date Recorded By Document 01/15/23 14:11 PL [id number] 01/15/23 14:13 PL Document 01/22/23 13:15 PL [id number] 01/22/23 13:17 PL Document 01/29/23 13:06 PL [id number] 01/29/23 13:08 PL Document 02/05/23 11:56 PL [id number] 02/05/23 11:57 PL 01/15/23 01/22/23 01/29/23 14:11 13:15 13:06 Wound Center Nurse 2 1-right medial calf cluster -Time 10:30 10:46 08:50 -Correct Patient Yes Yes Yes -Correct Side, Site, Position Yes Yes Yes -Correct Procedure Yes Yes Yes -Procedure Performed Yes Yes Yes -Type of Procedure Debridement Debridement Debridement -Clinical Debridement Subcutaneous Subcutaneous Subcutaneous -Tissue Removed Subcutaneous Subcutaneous Subcutaneous -Post Debridement (cm) - Length 0.8 0.1 0.7 -Post Debridement (cm) - Width 2.1 0.1 5.4 -Post Debridement (cm) - Depth 0.2 0.1 0.2 -Total Square (Post) (cm) 1.68 0.01 3.78 -Area of Debridement (cm) - Length 0.8 0.1 0.7 -Area of Debridement (cm) - Width 2.1 0.1 5.4 -Total Square (Area) (cm) 1.68 0.01 3.78 -Tunneling No No No -Undermining/Tunneling No No No -Circular Undermining No No No -Wound/Ulcer Outcome Not Healed Not Healed Not Healed -Ulcer Cleansing Rinsed/ Rinsed/ Rinsed/ Irrigated with Irrigated with Irrigated with Saline Saline Saline -Foul Odor after Cleansing No No No -Bioengineered Tissue No No No -Bleeding Controlled with Pressure Pressure Pressure -Treatment Response Procedure Procedure Procedure Tolerated Well Tolerated Well Tolerated Well -Debridement - Subq, 1st 20sq cm Yes Yes Yes #3 L Shah -Time 10:46 08:50 -Correct Patient Yes Yes -Correct Side, Site, Position Yes Yes -Correct Procedure Yes Yes -Procedure Performed Yes Yes -Type of Procedure Debridement Debridement -Clinical Debridement Subcutaneous Subcutaneous -Tissue Removed Subcutaneous Subcutaneous -Post Debridement (cm) - Length 1.7 0.6 -Post Debridement (cm) - Width 1.5 0.7 -Post Debridement (cm) - Depth 0.1 0.1 -Total Square (Post) (cm) 2.55 0.42 -Area of Debridement (cm) - Length 1.7 0.6 -Area of Debridement (cm) - Width 1.5 0.7 -Total Square (Area) (cm) 2.55 0.42 -Tunneling No No -Undermining/Tunneling No No -Circular Undermining No No -Wound/Ulcer Outcome Not Healed Not Healed -Ulcer Cleansing Rinsed/ Rinsed/ Irrigated with Irrigated with Saline Saline -Foul Odor after Cleansing No No -Bioengineered Tissue No No -Bleeding Controlled with Pressure Pressure -Treatment Response Procedure Procedure Tolerated Well Tolerated Well -Debridement - Subq, 20sq cm No No 2-right lateral calf -Time -Correct Patient -Correct Side, Site, Position -Correct Procedure -Procedure Performed No -Type of Procedure -Clinical Debridement -Tissue Removed -Post Debridement (cm) - Length -Post Debridement (cm) - Width -Post Debridement (cm) - Depth -Total Square (Post) (cm) -Area of Debridement (cm) - Length -Area of Debridement (cm) - Width -Total Square (Area) (cm) -Tunneling -Undermining/Tunneling -Circular Undermining -Wound/Ulcer Outcome Healed- Epithelialized -Ulcer Cleansing -Foul Odor after Cleansing -Bioengineered Tissue -Bleeding Controlled with -Treatment Response -Debridement - Subq, 20sq cm Pain Scale: 0-10 Numeric Is Patient Pain Free? Yes Yes Yes 02/05/23 11:56 Wound Center Nurse 2 1-right medial calf cluster -Time -Correct Patient -Correct Side, Site, Position -Correct Procedure -Procedure Performed No -Type of Procedure -Clinical Debridement -Tissue Removed -Post Debridement (cm) - Length -Post Debridement (cm) - Width -Post Debridement (cm) - Depth -Total Square (Post) (cm) -Area of Debridement (cm) - Length -Area of Debridement (cm) - Width -Total Square (Area) (cm) -Tunneling -Undermining/Tunneling -Circular Undermining -Wound/Ulcer Outcome Healed- Epithelialized -Ulcer Cleansing -Foul Odor after Cleansing -Bioengineered Tissue -Bleeding Controlled with -Treatment Response -Debridement - Subq, 1st 20sq cm #3 L Shah -Time 10:20 -Correct Patient Yes -Correct Side, Site, Position Yes -Correct Procedure Yes -Procedure Performed Yes -Type of Procedure Debridement -Clinical Debridement Subcutaneous -Tissue Removed Subcutaneous -Post Debridement (cm) - Length 0.6 -Post Debridement (cm) - Width 0.7 -Post Debridement (cm) - Depth 0.1 -Total Square (Post) (cm) 0.42 -Area of Debridement (cm) - Length 0.6 -Area of Debridement (cm) - Width 0.7 -Total Square (Area) (cm) 0.42 -Tunneling No -Undermining/Tunneling No -Circular Undermining No -Wound/Ulcer Outcome Not Healed -Ulcer Cleansing Rinsed/ Irrigated with Saline -Foul Odor after Cleansing No -Bioengineered Tissue No -Bleeding Controlled with Pressure -Treatment Response Procedure Tolerated Well -Debridement - Subq, 20sq cm No 2-right lateral calf -Time 10:20 -Correct Patient Yes -Correct Side, Site, Position Yes -Correct Procedure Yes -Procedure Performed Yes -Type of Procedure Debridement -Clinical Debridement Subcutaneous -Tissue Removed Subcutaneous -Post Debridement (cm) - Length 0.9 -Post Debridement (cm) - Width 0.9 -Post Debridement (cm) - Depth 0.3 -Total Square (Post) (cm) 0.81 -Area of Debridement (cm) - Length 0.9 -Area of Debridement (cm) - Width 0.9 -Total Square (Area) (cm) 0.81 -Tunneling No -Undermining/Tunneling No -Circular Undermining No -Wound/Ulcer Outcome Not Healed -Ulcer Cleansing Rinsed/ Irrigated with Saline -Foul Odor after Cleansing No -Bioengineered Tissue No -Bleeding Controlled with Pressure -Treatment Response Procedure Tolerated Well -Debridement - Subq, 1st 20sq cm Yes Pain Scale: 0-10 Numeric Is Patient Pain Free? Yes WC - Nurse 3 - General Ulcer D/C NN Start: 01/15/23 09:57 Freq: Status: Active Protocol: Activity Type Activity Date Activity User E-sign Co-sign Detail Recorded Client Recorded Date Recorded By Document 01/15/23 10:52 DL [id number] 01/15/23 10:54 DL Document 01/18/23 11:47 RB [id number] 01/18/23 11:49 RB Document 01/22/23 11:04 BMF [id number] 01/22/23 11:05 BMF Document 01/29/23 08:52 DL Desktop 01/29/23 08:53 DL Edit Result 01/29/23 08:52 DL (1) Desktop 01/29/23 09:03 DL Document 02/05/23 10:35 DL Desktop 02/05/23 10:38 DL (1) 1-right medial calf cluster - Other Dressing => promogran - Primary Dressing Covered/Secured with => Dry Gauze,Secured => with Tape ble - Tubular Bandage => Double Layer - Size of Tubigrip Used => Size F - Size F ($) => 2 Ambulatory Status Ambulatory, => Ambulatory,Walker Crutches => 01/15/23 01/18/23 01/22/23 10:52 11:47 11:04 Wound Care Center Nurse 3 1-right medial calf cluster -Ulcer Cleansing Rinsed/ Wound Cleanser Rinsed/ Irrigated with Irrigated with Saline Saline -Foul Odor after Cleansing No No -Primary Dressing Applied Promogran -Other Dressing promgran promogran -Primary Dressing Covered/Secured with Dry Gauze Dry Gauze Dry Gauze, Secured with Tape -Promogran 0 #3 L Shah -Ulcer Cleansing Rinsed/ Irrigated with Saline -Foul Odor after Cleansing No -Primary Dressing Applied Promogran -Primary Dressing Covered/Secured with Dry Gauze, Secured with Tape -Promogran 2 2-right lateral calf -Ulcer Cleansing Rinsed/ Irrigated with Saline -Foul Odor after Cleansing No -Primary Dressing Applied Promogran -Other Dressing -Primary Dressing Covered/Secured with Dry Gauze -Promogran 1 Right -Tubular Bandage -Size of Tubigrip Used -Size F ($) Left -Tubular Bandage -Size of Tubigrip Used -Size E ($) ble -Tubular Bandage Single Layer -Size of Tubigrip Used Size F -Size F ($) 2 liyah -Multi-Layered Wrap Application Unna Boot - Unna Boot - Bilateral ($) Bilateral ($) -Tubular Bandage Single Layer -Size of Tubigrip Used Size E -Size E ($) 2 Treatment Response Procedure Procedure Procedure Tolerated Well Tolerated Well Tolerated Well Vital Signs Temperature (97.8 F-99.1 F) 96 F L Temperature Source Temporal Pulse Rate (60-100) 68 Pulse Location Monitor Respiratory Rate (12-18) 18 Respiratory rate source Observation Blood Pressure (90/60-120/80) 181/88 H Blood Pressure Mean 119 Source Monitor Position Sitting Blood Pressure Location Left Arm Pain Scale: 0-10 Numeric Is Patient Pain Free? Yes Yes Yes WC - Visit Discharge Discharge Condition Stable Stable Stable Ambulatory Status Ambulatory Ambulatory Ambulatory, Walker Transportation Private Auto Private Auto Private Auto Accompanied by Medication Reconcilliation completed & No provided to patient/care provider Clinical Summary of Care Provided Yes 01/29/23 02/05/23 08:52 10:35 Wound Care Center Nurse 3 1-right medial calf cluster -Ulcer Cleansing -Foul Odor after Cleansing -Primary Dressing Applied -Other Dressing promogran -Primary Dressing Covered/Secured with Dry Gauze, Secured with Tape -Promogran #3 L Shah -Ulcer Cleansing Rinsed/ Rinsed/ Irrigated with Irrigated with Saline Saline -Foul Odor after Cleansing No No -Primary Dressing Applied Promogran Promogran -Primary Dressing Covered/Secured with Dry Gauze, Dry Gauze, Secured with Secured with Tape Tape -Promogran 1 1 2-right lateral calf -Ulcer Cleansing Rinsed/ Irrigated with Saline -Foul Odor after Cleansing Yes, Due to Product Use -Primary Dressing Applied -Other Dressing promogran -Primary Dressing Covered/Secured with Dry Gauze, Secured with Tape -Promogran Right -Tubular Bandage Single Layer -Size of Tubigrip Used Size F -Size F ($) 1 Left -Tubular Bandage Single Layer -Size of Tubigrip Used Size E -Size E ($) 1 ble -Tubular Bandage Double Layer -Size of Tubigrip Used Size F -Size F ($) 2 liyah -Multi-Layered Wrap Application -Tubular Bandage -Size of Tubigrip Used -Size E ($) Treatment Response Procedure Tolerated Well Vital Signs Temperature (97.8 F-99.1 F) Temperature Source Pulse Rate (60-100) Pulse Location Respiratory Rate (12-18) Respiratory rate source Blood Pressure (90/60-120/80) Blood Pressure Mean Source Position Blood Pressure Location Pain Scale: 0-10 Numeric Is Patient Pain Free? Yes Yes WC - Visit Discharge Discharge Condition Stable Stable Ambulatory Status Ambulatory, Ambulatory Walker Transportation Private Auto Private Auto Accompanied by Medication Reconcilliation completed & Yes provided to patient/care provider Clinical Summary of Care Provided Yes Additional Wound Wound debrided: Ulceration of the left lateral calf Laterality: Left Type of Debridement: Excisional debridement Anesthesia Used: 5% Lidocaine Gel Depth: Down to and including healthy tissue and in the subcutaneous layer Percentage of wound debrided: 100 Instrument Used: 3mm curette Tissue Removed: Bioburden and nonviable tissue Severity: Fat Layer Exposed Amount of bleeding with debridement: Mild Bleeding Controlled with: Compression and gauze Patient tolerated procedure: Patient tolerated procedure well Assessment/Plan Assessment/Plan (1) Venous stasis ulcer of right lower leg with edema of right lower leg: CODE(S): I83.019 - Varicose veins of right lower extremity with ulcer of unspecified site; I83.891 - Varicose veins of right lower extremity with other complications; L97.919 - Non-pressure chronic ulcer of unspecified part of right lower leg with unspecified severity; R60.0 - Localized edema (2) Venous stasis ulcer of left lower leg with edema of left lower leg: CODE(S): I83.029 - Varicose veins of left lower extremity with ulcer of unspecified site; I83.892 - Varicose veins of left lower extremity with other complications; L97.929 - Non-pressure chronic ulcer of unspecified part of left lower leg with unspecified severity; R60.0 - Localized edema (3) Chronic venous hypertension w/ulcer and inflammation involv right side: CODE(S): I87.331 - Chronic venous hypertension (idiopathic) with ulcer and inflammation of right lower extremity (4) Right leg swelling: CODE(S): M79.89 - Other specified soft tissue disorders (5) Leg edema, right: CODE(S): R60.0 - Localized edema (6) Lymphedema: CODE(S): I89.0 - Lymphedema, not elsewhere classified (7) 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: CODE(S): I87.039 - Postthrombotic syndrome with ulcer and inflammation of unspecified lower extremity (8) History of deep vein thrombosis: CODE(S): Z86.718 - Personal history of other venous thrombosis and embolism (9) History of pulmonary embolism: CODE(S): Z86.711 - Personal history of pulmonary embolism (10) Varicose veins with ulcer and inflammation: CODE(S): I83.209 - Varicose veins of unspecified lower extremity with both ulcer of unspecified site and inflammation; L97.909 - Non-pressure chronic ulcer of unspecified part of unspecified lower leg with unspecified severity (11) Morbid obesity with BMI of 45.0-49.9, adult: CODE(S): E66.01 - Morbid (severe) obesity due to excess calories; Z68.42 - Body mass index [BMI] 45.0-49.9, adult (12) Hypertension: CODE(S): I10 - Essential (primary) hypertension (13) Diabetes mellitus: CODE(S): E11.9 - Type 2 diabetes mellitus without complications (14) Sleep apnea in adult: CODE(S): G47.30 - Sleep apnea, unspecified (15) Left leg swelling: CODE(S): M79.89 - Other specified soft tissue disorders (16) Leg edema, left: CODE(S): R60.0 - Localized edema (17) History of bunionectomy: CODE(S): Z98.890 - Other specified postprocedural states (18) History of tonsillectomy: CODE(S): Z90.89 - Acquired absence of other organs (19) Lipodermatosclerosis of both lower extremities: CODE(S): I83.11 - Varicose veins of right lower extremity with in flammation; I83.12 - Varicose veins of left lower extremity with inflammation (20) Dependent edema: CODE(S): R60.9 - Edema, unspecified PLAN: Plan This is a 67-year-old obese male with a history of ulcerations in his lower extremities. He presented with 2 ulcerations on the right posterior calf, which had been present for several months. He now has only 1 ulceration on the right posterior calf, as well as an ulceration on the left lateral calf. The patient has a history of lower extremity swelling and edema. He is relatively inactive . He spends a great deal of each day sitting and inactive. We are to continue a protocol of conservative treatment measures. A lengthy discussion has been undertaken with the patient. He has been encouraged to enhance his activity is much as possible. He has been discouraged from prolonged idle sitting. Leg elevation has been encouraged as well. Elevation is to be to heart level, or higher, is much as possible, and during both daytime and nighttime hours. The patient has been encouraged to sleep on a flat mattress at night. Thus far, the patient has been only moderately compliant with leg elevation. We are to continue compression to the lower extremities by means of Tubigrip's, doubled, for a total of 30 to 40 mmHg compression. These will be donned on a daily basis. Promogran will be applied topically to the ulcerations on a daily basis. The patient has been instructed in the appropriate means of application. Ultimately, we will consider transition to the use of graduated compression stockings or Velcro compression garments of at least 20 to 30 mmHg compression for long-term use. Weight loss has also been recommended. The patient owns pneumatic mechanical compression pumps, and has been encouraged to use these 2-3 times daily for approximately 1 hour each session. The patient is to return in 1 week for reassessment. Total time: 26 minutes
== END 2023-02-09 23:59 | disposition home or self-care (01) ==
LOC: WC 10:15
PROVIDERS: PCP Family Medicine; Referring Provider Family Medicine; Visit Provider Surgery
DX: I87.331 Chronic venous hypertension (idiopathic) with ulcer and inflammation of right lower extremity (principal); L97.912 Non-pressure chronic ulcer of unspecified part of right lower leg with fat layer exposed; L97.922 Non-pressure chronic ulcer of unspecified part of left lower leg with fat layer exposed; E66.01 Morbid (severe) obesity due to excess calories; Z68.42 Body mass index [BMI] 45.0-49.9, adult; E11.9 Type 2 diabetes mellitus without complications; R60.0 Localized edema; I83.93 Asymptomatic varicose veins of bilateral lower extremities; F41.9 Anxiety disorder, unspecified; I89.0 Lymphedema, not elsewhere classified; G47.30 Sleep apnea, unspecified; I10 Essential (primary) hypertension; Z90.89 Acquired absence of other organs; I83.11 Varicose veins of right lower extremity with inflammation; M79.89 Other specified soft tissue disorders; Z86.711 Personal history of pulmonary embolism; Z86.718 Personal history of other venous thrombosis and embolism; I83.892 Varicose veins of left lower extremity with other complications
CPT/HCPCS: 11042; 29580; 99213; G0463

== ENCOUNTER 2023-03-05 10:30 | Outpatient (RCR) | payer MEDICARE, SELFPAY ==
[2023-02-10 00:09] VITALS: BP 156/86; PULSE 68; RESP 20; TEMP 36.1; BMI 49.1
[2023-02-12 10:31] VITALS: BP 147/94; PULSE 80; TEMP 36.2; BMI 49.1
--- NOTE | 2023-02-12 10:51 | PCM.WC.HP ---
History of Present Illness Date of Service: 02/12/23 Chief Complaint: Ulcerations, right posterior calf History of Wound: This is a 67-year-old obese male who presented with 2 ulcerations on the right posterior calf. The patient claimed to have had ulcerations in his lower extremities intermittently for many years. The current ulcerations had been present for several months. They occurred spontaneously, after the formation of blisters. The patient is inactive. Ambulation is limited, and he requires a cane or walker for mobility. He is morbidly obese. He sleeps in a chair. He wears graduated compression stockings of less than 20 to 30 mmHg compression. He also has pneumatic compression pumps, which he was not currently using. He has chronic swelling, edema, and lymphedema in his lower extremities. He spends a good part of each day sitting while watching television. The patient had recently undergone a venous duplex examination which revealed valvular incompetence involving the right great saphenous vein. A computerized tomography angiogram/venogram revealed no evidence of iliac vein obstruction. The patient does not smoke or drink. He is single and lives alone. 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 Right leg swelling Sleep apnea in adult Varicose veins with ulcer and inflammation Venous stasis ulcer of left lower leg with edema of left lower leg Venous stasis ulcer of right lower leg with edema of right lower leg Home Medications bumetanide 2 mg tablet 2 mg PO DAILY 01/15/23 [History Last Taken Unknown] fluoxetine 40 mg capsule 40 mg PO DAILY 01/15/23 [History Last Taken Unknown] lisinopril 20 mg tablet 20 mg PO DAILY 01/15/23 [History Last Taken Unknown] potassium citrate 10 mEq (1,080 mg) tablet,extended release 10 meq PO DAILY 01/15/23 [History Last Taken Unknown] valproic acid 250 mg capsule 250 mg PO TID 01/15/23 [History Last Taken Unknown] Allergy/AdvReac Type Severity Reaction Status Date / Time No Known Allergies Allergy Verified 01/15/23 10:10 Family History other Surgical History History of bunionectomy History of tonsillectomy Social History Smoking Status: Never smoker Vital Signs Vital Signs Vital Signs: 02/12/23 10:31 Temperature 97.2 F L Temperature Source Temporal Pulse Rate 80 Blood Pressure 147/94 H Blood Pressure Mean 111 Blood Pressure Source Monitor Blood Pressure Position Sitting Blood Pressure Location Right Arm Oxygen Delivery Method Room Air Weight Weight: 372 lb Body Mass Index (BMI) 49.1 Physical Exam Const alert, oriented x3, no apparent distress, no limitations and well nourished Constitutional Narrative: The patient is morbidly obese. His BMI is 49.1. General Appearance: cooperative, comfortable, well kempt and well developed Orientation / Consciousness: awake, oriented to person, oriented to place and oriented to time HEENT normocephalic, head/scalp atraumatic and hearing grossly normal bilaterally Head and Scalp: normal to inspection, normocephalic and atraumatic External Ear: external ears normal Eyes PERRL and EOMs intact bilaterally General Eye: normal appearance of both eyes Resp normal respiratory effort, normal air movement, no retractions and no use of accessory muscles Effort and Inspection: able to speak in complete sentences Extremity no calf tenderness General Extremity: Negative for clubbing or cyanosis Skin Wound Narrative: Two small ulcerations are noted on the patient's right posterior calf. Dimensions are documented elsewhere. There is no sign of infection or cellulitis. There is a small amount of bioburden involving each ulceration. The ulceration on the left lateral calf is now completely healed. Moderate swelling and edema are noted in the patient's lower extremities bilaterally. Lipodermatosclerosis and hyperpigmentation are noted bilaterally in the gaiter areas. Multiphasic, strong ankle pulses are noted bilaterally. Neuro oriented x3, CN's II-XII intact bilaterally, moves all extremities and no focal motor deficits Sensorium / Orientation: awake, alert, oriented to person, oriented to place and oriented to time Psych Appearance: grossly normal and appropriate Attitude: calm Activity / Motor Behavior: appropriate eye contact Speech: normal speech Mood & Affect: euthymic mood Thought Process: normal thought process Thought Content: normal thought content Attention / Concentration: attention grossly intact Debridement Note Debridement Note Wound debrided: Right posterior calf Laterality: Right Type of Debridement: Excisional debridement Anesthesia Used: 5% Lidocaine Gel Depth: Down to and including healthy tissue and in the subcutaneous layer Percentage of wound debrided: 100 Instrument Used: 3mm curette Tissue Removed: Bioburden and nonviable tissue Severity: Fat Layer Exposed Amount of bleeding with debridement: Mild Bleeding Controlled with: Compression and gauze Patient tolerated procedure: Patient tolerated procedure well Post-Debridement Measurements and Additional Note: Post-Debridement Measurements/Treatment WC - Nurse 1 - General Ulcer Assessment Start: 02/12/23 10:31 Freq: Status: Active Protocol: JACKIE Activity Type Activity Date Activity User E-sign Co-sign Detail Recorded Client Recorded Date Recorded By Document 02/12/23 10:31 Desktop 02/12/23 10:40 GM 02/12/23 10:31 WC - Today's Visit Information Type of service Follow-up Visit (Physician/RN INTERNATIONAL ) Arrival Mode Ambulatory, Walker Patient Identification Verified (Name & Yes ) Patient Requires Transmission-Based No Precautions Height and Weight Body Mass Index (BMI) 49.1 BMI Classification Obese Vital Signs Temperature (97.8 F-99.1 F) 97.2 F L Temperature Source Temporal Pulse Rate (60-100) 80 Pulse Location Monitor Oxygen Delivery Method Room Air Blood Pressure (90/60-120/80) 147/94 H Blood Pressure Mean 111 Source Monitor Position Sitting Blood Pressure Location Right Arm History Since Last Visit- (Skip if this is Patient's initial visit) Have you changed medications since your No last visit? Any new allergies or adverse reactions No Had a fall/change in ADL's that may No increase risk of falls Signs or symptoms of abuse and/or No neglect since last visit Have you been in the hospital since your No last visit? Has dressing in place as prescribed Yes Has compression in place as prescribed Yes Experienced any changes in pain level or No management Left Footwear Regular Shoe Right Footwear Regular Shoe Pain Scale: 0-10 Numeric Is Patient Pain Free? Yes KAYLA Sanchez Nurse 1 - General Ulcer Measurement Start: 02/12/23 10:31 Freq: Status: Active Protocol: Activity Type Activity Date Activity User E-sign Co-sign Detail Recorded Client Recorded Date Recorded By Document 02/12/23 10:31 Desktop 02/12/23 10:40 GM 02/12/23 10:31 Wound Center Nurse 1 #3 L Shah -Current Size (cm) - Length 1.0 -Current Size (cm) - Width 1.0 -Current Size (cm) - Depth 1.0 -Total Square Cm 1.00 -Photo Taken No -Undermining/Tunneling No -Circular Undermining No -Exudate Amt None Present -Wound Margin Flat & Intact -Granulation Amt Small (1-33%) -Granulation Quality [place] -Slough/Fibrin No -Necrosis Amt None Present (0 %) -Structure Exposed N/A -Texture (Marilynn-wound Skin Appearance) Scarring -Moisture (Marilynn-wound Skin Appearance) No Abnormality -Color (Marilynn-wound Skin Appearance) Hemosiderin Staining -Temperature (Marilynn-wound Skin No Abnormality Appearance) (Pt Warm) -Ulcer Cleansing Rinsed/ Irrigated with Saline -Foul Odor after Cleansing No 2-right lateral calf -Current Size (cm) - Length 0.7 -Current Size (cm) - Width 5.5 -Current Size (cm) - Depth 0.2 -Total Square Cm 3.85 -Epithelialization Small 1-33% -Tunneling No -Undermining/Tunneling No -Circular Undermining No -Change in Wound Grade/Stage No -Granulation Amt Small (1-33%) -Granulation Quality [place] -Slough/Fibrin No -Structure Exposed N/A -Texture (Marilynn-wound Skin Appearance) No Abnormality -Temperature (Marilynn-wound Skin No Abnormality Appearance) (Pt Warm) -Ulcer Cleansing Rinsed/ Irrigated with Saline -Foul Odor after Cleansing No Point of measurement (cm from the medial 49.5 instep) Point of Measurement (cm from the medial 30.5 instep) Point of measurement (cm from the medial 47.5 instep) Point of Measurement (cm from the medial 28.5 instep) Assessment/Plan Assessment/Plan (1) Venous stasis ulcer of right lower leg with edema of right lower leg: CODE(S): I83.019 - Varicose veins of right lower extremity with ulcer of unspecified site; I83.891 - Varicose veins of right lower extremity with other complications; L97.919 - Non-pressure chronic ulcer of unspecified part of right lower leg with unspecified severity; R60.0 - Localized edema (2) Venous stasis ulcer of left lower leg with edema of left lower leg: CODE(S): I83.029 - Varicose veins of left lower extremity with ulcer of unspecified site; I83.892 - Varicose veins of left lower extremity with other complications; L97.929 - Non-pressure chronic ulcer of unspecified part of left lower leg with unspecified severity; R60.0 - Localized edema (3) Chronic venous hypertension w/ulcer and inflammation involv right side: CODE(S): I87.331 - Chronic venous hypertension (idiopathic) with ulcer and inflammation of right lower extremity (4) Right leg swelling: CODE(S): M79.89 - Other specified soft tissue disorders (5) Leg edema, right: CODE(S): R60.0 - Localized edema (6) Lymphedema: CODE(S): I89.0 - Lymphedema, not elsewhere classified (7) 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: CODE(S): I87.039 - Postthrombotic syndrome with ulcer and inflammation of unspecified lower extremity (8) History of deep vein thrombosis: CODE(S): Z86.718 - Personal history of other venous thrombosis and embolism (9) History of pulmonary embolism: CODE(S): Z86.711 - Personal history of pulmonary embolism (10) Varicose veins with ulcer and inflammation: CODE(S): I83.209 - Varicose veins of unspecified lower extremity with both ulcer of unspecified site and inflammation; L97.909 - Non-pressure chronic ulcer of unspecified part of unspecified lower leg with unspecified severity (11) Morbid obesity with BMI of 45.0-49.9, adult: CODE(S): E66.01 - Morbid (severe) obesity due to excess calories; Z68.42 - Body mass index [BMI] 45.0-49.9, adult (12) Hypertension: CODE(S): I10 - Essential (primary) hypertension (13) Diabetes mellitus: CODE(S): E11.9 - Type 2 diabetes mellitus without complications (14) Sleep apnea in adult: CODE(S): G47.30 - Sleep apnea, unspecified (15) Left leg swelling: CODE(S): M79.89 - Other specified soft tissue disorders (16) Leg edema, left: CODE(S): R60.0 - Localized edema (17) History of bunionectomy: CODE(S): Z98.890 - Other specified postprocedural states (18) History of tonsillectomy: CODE(S): Z90.89 - Acquired absence of other organs (19) Lipodermatosclerosis of both lower extremities: CODE(S): I83.11 - Varicose veins of right lower extremity with inflammation; I83.12 - Varicose veins of left lower extremity with inflammation (20) Dependent edema: CODE(S): R60.9 - Edema, unspecified PLAN: Plan This is a 67-year-old morbidly obese male with a history of ulcerations in his lower extremities. He presented with 2 ulcerations on the right posterior calf, which had been present for several months. The patient has a history of lower extremity swelling and edema. He is relatively inactive. He spends a great deal of each day sitting and inactive. We are to continue a protocol of conservative treatment measures. A lengthy discussion has been undertaken with the patient. He has been encouraged to enhance his activity is much as possible. He has been discouraged from prolonged idle sitting. Leg elevation has been encouraged as well. Elevation is to be to heart level, or higher, is much as possible, and during both daytime and nighttime hours. The patient has been encouraged to sleep on a flat mattress at night. Thus far, the patient has been only moderately compliant with leg elevation. We are to continue compression to the lower extremities by means of Tubigrip's, doubled, for a total of 30 to 40 mmHg compression. These will be donned on a daily basis. Promogran will be applied topically to the ulcerations on a daily basis. The patient has been instructed in the appropriate means of application. Ultimately, we will consider transition to the use of graduated compression stockings or Velcro compression garments of at least 20 to 30 mmHg compression for long-term use. Weight loss has also been recommended. The patient owns pneumatic mechanical compression pumps, and has been encouraged to use these 2-3 times daily for approximately 1 hour each session. The patient is to return in 1 week for reassessment. Total time: 25 minutes
[2023-02-19 10:39] VITALS: BP 139/74; PULSE 66; RESP 18; TEMP 36.1; BMI 49.1
--- NOTE | 2023-02-19 12:51 | PCM.WC.HP ---
History of Present Illness Date of Service: 02/19/23 Chief Complaint: Ulcerations, right posterior calf History of Wound: This is a 67-year-old obese male who presented with 2 ulcerations on the right posterior calf. The patient claimed to have had ulcerations in his lower extremities intermittently for many years. The current ulcerations had been present for several months. They occurred spontaneously, after the formation of blisters. The patient is inactive. Ambulation is limited, and he requires a cane or walker for mobility. He is morbidly obese. He sleeps in a chair. He wears graduated compression stockings of less than 20 to 30 mmHg compression. He also has pneumatic compression pumps, which he was not currently using. He has chronic swelling, edema, and lymphedema in his lower extremities. He spends a good part of each day sitting while watching television. The patient had recently undergone a venous duplex examination which revealed valvular incompetence involving the right great saphenous vein. A computerized tomography angiogram/venogram revealed no evidence of iliac vein obstruction. The patient does not smoke or drink. He is single and lives alone. 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 Right leg swelling Sleep apnea in adult Varicose veins with ulcer and inflammation Venous stasis ulcer of left lower leg with edema of left lower leg Venous stasis ulcer of right lower leg with edema of right lower leg Home Medications bumetanide 2 mg tablet 2 mg PO DAILY 01/15/23 [History Last Taken Unknown] fluoxetine 40 mg capsule 40 mg PO DAILY 01/15/23 [History Last Taken Unknown] lisinopril 20 mg tablet 20 mg PO DAILY 01/15/23 [History Last Taken Unknown] potassium citrate 10 mEq (1,080 mg) tablet,extended release 10 meq PO DAILY 01/15/23 [History Last Taken Unknown] valproic acid 250 mg capsule 250 mg PO TID 01/15/23 [History Last Taken Unknown] Allergy/AdvReac Type Severity Reaction Status Date / Time No Known Allergies Allergy Verified 01/15/23 10:10 Family History other Surgical History History of bunionectomy History of tonsillectomy Social History Smoking Status: Never smoker Vital Signs Vital Signs Vital Signs: 02/19/23 10:39 Temperature 97 F L Temperature Source Temporal Pulse Rate 66 Respiratory Rate 18 Blood Pressure 139/74 H Blood Pressure Mean 95 Blood Pressure Source Monitor Blood Pressure Position Semi-Fowlers Blood Pressure Location Left Arm Weight Weight: 372 lb Body Mass Index (BMI) 49.1 Physical Exam Const alert, oriented x3, no apparent distress, no limitations and well nourished Constitutional Narrative: The patient is morbidly obese. His BMI is 49.1. General Appearance: cooperative, comfortable, well kempt and well developed Orientation / Consciousness: awake, oriented to person, oriented to place and oriented to time HEENT normocephalic, head/scalp atraumatic and hearing grossly normal bilaterally Head and Scalp: normal to inspection, normocephalic and atraumatic External Ear: external ears normal Eyes PERRL and EOMs intact bilaterally General Eye: normal appearance of both eyes Resp normal respiratory effort, normal air movement, no retractions and no use of accessory muscles Effort and Inspection: able to speak in complete sentences Extremity no calf tenderness General Extremity: Negative for clubbing or cyanosis Skin Wound Narrative: Two small ulcerations are noted on the patient's right posterior calf. Dimensions are documented elsewhere. There is no sign of infection or cellulitis. There is a small amount of bioburden involving each ulceration. The ulceration on the left lateral calf is now completely healed. Moderate swelling and edema are noted in the patient's lower extremities bilaterally. Lipodermatosclerosis and hyperpigmentation are noted bilaterally in the gaiter areas. Multiphasic, strong ankle pulses are noted bilaterally. Neuro oriented x3, CN's II-XII intact bilaterally, moves all extremities and no focal motor deficits Sensorium / Orientation: awake, alert, oriented to person, oriented to place and oriented to time Psych Appearance: grossly normal and appropriate Attitude: calm Activity / Motor Behavior: appropriate eye contact Speech: normal speech Mood & Affect: euthymic mood Thought Process: normal thought process Thought Content: normal thought content Attention / Concentration: attention grossly intact Debridement Note Debridement Note Wound debrided: Right posterior calf Laterality: Right Type of Debridement: Excisional debridement Anesthesia Used: 5% Lidocaine Gel Depth: Down to and including healthy tissue and in the subcutaneous layer Percentage of wound debrided: 100 Instrument Used: 3mm curette Tissue Removed: Bioburden and nonviable tissue Severity: Fat Layer Exposed Amount of bleeding with debridement: Mild Bleeding Controlled with: Compression and gauze Patient tolerated procedure: Patient tolerated procedure well Post-Debridement Measurements and Additional Note: Post-Debridement Measurements/Treatment - Nurse 1 - General Ulcer Assessment Start: 02/12/23 10:31 Freq: Status: Active Protocol: JACKIE Activity Type Activity Date Activity User E-sign Co-sign Detail Recorded Client Recorded Date Recorded By Document 02/12/23 10:31 Desktop 02/12/23 10:40 GM Document 02/19/23 10:39 RB Desktop 02/19/23 10:41 RB 02/12/23 02/19/23 10:31 10:39 - Today's Visit Information Type of service Follow-up Visit Follow-up Visit (Physician/CREDIT COLLECTIONS REP (Physician/CREDIT COLLECTIONS REP ) ) Arrival Mode Ambulatory, Ambulatory, Walker Walker Transfer Assistance None Patient Identification Verified (Name & Yes Yes ) Patient Requires Transmission-Based No No Precautions Height and Weight Body Mass Index (BMI) 49.1 49.1 BMI Classification Obese Obese Vital Signs Temperature (97.8 F-99.1 F) 97.2 F L 97 F L Temperature Source Temporal Temporal Pulse Rate (60-100) 80 66 Pulse Location Monitor Monitor Respiratory Rate (12-18) 18 Respiratory rate source Observation Oxygen Delivery Method Room Air Blood Pressure (90/60-120/80) 147/94 H 139/74 H Blood Pressure Mean 111 95 Source Monitor Monitor Position Sitting Semi-Fowlers Blood Pressure Location Right Arm Left Arm History Since Last Visit- (Skip if this is Patient's initial visit) Have you changed medications since your No No last visit? Any new allergies or adverse reactions No No Had a fall/change in ADL's that may No No increase risk of falls Signs or symptoms of abuse and/or No No neglect since last visit Have you been in the hospital since your No No last visit? Has dressing in place as prescribed Yes Yes Has compression in place as prescribed Yes Yes Has offloadiing in place as prescribed No Experienced any changes in pain level or No No management Left Footwear Regular Shoe Right Footwear Regular Shoe Pain Scale: 0-10 Numeric Is Patient Pain Free? Yes Yes WC - Nurse 1 - General Ulcer Measurement Start: 02/12/23 10:31 Freq: Status: Active Protocol: Activity Type Activity Date Activity User E-sign Co-sign Detail Recorded Client Recorded Date Recorded By Document 02/12/23 10:31 GM Desktop 02/12/23 10:40 GM Document 02/19/23 10:39 RB Desktop 02/19/23 10:41 RB 02/12/23 02/19/23 10:31 10:39 Wound Center Nurse 1 #3 L Shah -Current Size (cm) - Length 1.0 -Current Size (cm) - Width 1.0 -Current Size (cm) - Depth 1.0 -Total Square Cm 1.00 -Photo Taken No -Undermining/Tunneling No -Circular Undermining No -Exudate Amt None Present -Wound Margin Flat & Intact -Granulation Amt Small (1-33%) -Granulation Quality [place] -Slough/Fibrin No -Necrosis Amt None Present (0 %) -Structure Exposed N/A -Texture (Marilynn-wound Skin Appearance) Scarring -Moisture (Marilynn-wound Skin Appearance) No Abnormality -Color (Marilynn-wound Skin Appearance) Hemosiderin Staining -Temperature (Marilynn-wound Skin No Abnormality Appearance) (Pt Warm) -Ulcer Cleansing Rinsed/ Irrigated with Saline -Foul Odor after Cleansing No 2-right lateral calf cluster -Combined with other wound No -Current Size (cm) - Length 0.7 0.7 -Current Size (cm) - Width 5.5 6 -Current Size (cm) - Depth 0.2 0.2 -Total Square Cm 3.85 4.2 -Photo Taken Yes -Epithelialization Small 1-33% -Tunneling No No -Undermining/Tunneling No No -Circular Undermining No No -Change in Wound Grade/Stage No -Exudate Amt Medium -Exudate Type Serosanguineous -Wound Margin Distinct, Outline Attached -Granulation Amt Small (1-33%) Medium (34-66%) -Granulation [place],Red -Slough/Fibrin No Yes -Necrosis Amt Medium (34-66%) -Necrotic Tissue Type Adherent Slough -Structure Exposed N/A N/A -Texture (Marilynn-wound Skin Appearance) No Abnormality Assessed -Moisture (Marilynn-wound Skin Appearance) Assessed -Color (Marilynn-wound Skin Appearance) Assessed -Temperature (Marilynn-wound Skin No Abnormality No Abnormality Appearance) (Pt Warm) (Pt Warm) -Tenderness on Palpation (Marilynn-wound No Skin Appearance) -Ulcer Cleansing Rinsed/ Wound Cleanser Irrigated with Saline -Foul Odor after Cleansing No No -Anesthetic Used 5% Lidocaine Gel Lower Limb Edema Present Yes Right Calf (cm) 52.5 Point of measurement (cm from the medial 49.5 instep) Right Ankle (cm) 31 Point of Measurement (cm from the medial 30.5 instep) Point of measurement (cm from the medial 47.5 instep) Point of Measurement (cm from the medial 28.5 instep) WC - Nurse 2 - General Ulcer CM Notes Start: 02/12/23 10:31 Freq: Status: Active Protocol: Activity Type Activity Date Activity User E-sign Co-sign Detail Recorded Client Recorded Date Recorded By Document 02/12/23 13:23 PL [id number] 02/12/23 13:24 PL 02/12/23 13:23 Wound Center Nurse 2 #3 L Shah -Procedure Performed No -Wound/Ulcer Outcome Healed- Epithelialized 2-right lateral calf cluster -Time 10:45 -Correct Patient Yes -Correct Side, Site, Position Yes -Correct Procedure Yes -Procedure Performed Yes -Type of Procedure Debridement -Clinical Debridement Subcutaneous -Tissue Removed Subcutaneous -Post Debridement (cm) - Length 0.7 -Post Debridement (cm) - Width 5.5 -Post Debridement (cm) - Depth 0.2 -Total Square (Post) (cm) 3.85 -Area of Debridement (cm) - Length 0.7 -Area of Debridement (cm) - Width 5.5 -Total Square (Area) (cm) 3.85 -Tunneling No -Undermining/Tunneling No -Circular Undermining No -Wound/Ulcer Outcome Not Healed -Ulcer Cleansing Rinsed/ Irrigated with Saline -Foul Odor after Cleansing No -Bioengineered Tissue No -Bleeding Controlled with Pressure -Treatment Response Procedure Tolerated Well -Debridement - Subq, 1st 20sq cm Yes Pain Scale: 0-10 Numeric Is Patient Pain Free? Yes - Nurse 3 - General Ulcer D/C NN Start: 02/12/23 10:31 Freq: Status: Active Protocol: Activity Type Activity Date Activity User E-sign Co-sign Detail Recorded Client Recorded Date Recorded By Document 02/19/23 11:21 RB Desktop 02/19/23 11:22 RB 02/19/23 11:21 Wound Care Center Nurse 3 2-right lateral calf cluster -Ulcer Cleansing Rinsed/ Irrigated with Saline -Other Dressing promogran -Primary Dressing Covered/Secured with Dry Gauze & Roll Gauze, Secured with Tape bilat -Multi-Layered Wrap Application Multi-Layer Comp - Bilat ($ ) Treatment Response Procedure Tolerated Well Pain Scale: 0-10 Numeric Is Patient Pain Free? Yes WC - Visit Discharge Discharge Condition Stable Ambulatory Status Ambulatory, Walker Transportation Private Auto Medication Reconcilliation completed & No provided to patient/care provider Clinical Summary of Care Provided Yes Assessment/Plan Assessment/Plan (1) Venous stasis ulcer of right lower leg with edema of right lower leg: CODE(S): I83.019 - Varicose veins of right lower extremity with ulcer of unspecified site; I83.891 - Varicose veins of right lower extremity with other complications; L97.919 - Non-pressure chronic ulcer of unspecified part of right lower leg with unspecified severity; R60.0 - Localized edema (2) Venous stasis ulcer of left lower leg with edema of left lower leg: CODE(S): I83.029 - Varicose veins of left lower extremity with ulcer of unspecified site; I83.892 - Varicose veins of left lower extremity with other complications; L97.929 - Non-pressure chronic ulcer of unspecified part of left lower leg with unspecified severity; R60.0 - Localized edema (3) Chronic venous hypertension w/ulcer and inflammation involv right side: CODE(S): I87.331 - Chronic venous hypertension (idiopathic) with ulcer and inflammation of right lower extremity (4) Right leg swelling: CODE(S): M79.89 - Other specified soft tissue disorders (5) Leg edema, right: CODE(S): R60.0 - Localized edema (6) Lymphedema: CODE(S): I89.0 - Lymphedema, not elsewhere classified (7) 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: CODE(S): I87.039 - Postthrombotic syndrome with ulcer and inflammation of unspecified lower extremity (8) History of deep vein thrombosis: CODE(S): Z86.718 - Personal history of other venous thrombosis and embolism (9) History of pulmonary embolism: CODE(S): Z86.711 - Personal history of pulmonary embolism (10) Varicose veins with ulcer and inflammation: CODE(S): I83.209 - Varicose veins of unspecified lower extremity with both ulcer of unspecified site and inflammation; L97.909 - Non-pressure chronic ulcer of unspecified part of unspecified lower leg with unspecified severity (11) Morbid obesity with BMI of 45.0-49.9, adult: CODE(S): E66.01 - Morbid (severe) obesity due to excess calories; Z68.42 - Body mass index [BMI] 45.0-49.9, adult (12) Hypertension: CODE(S): I10 - Essential (primary) hypertension (13) Diabetes mellitus: CODE(S): E11.9 - Type 2 diabetes mellitus without complications (14) Sleep apnea in adult: CODE(S): G47.30 - Sleep apnea, unspecified (15) Left leg swelling: CODE(S): M79.89 - Other specified soft tissue disorders (16) Leg edema, left: CODE(S): R60.0 - Localized edema (17) History of bunionectomy: CODE(S): Z98.890 - Other specified postprocedural states (18) History of tonsillectomy: CODE(S): Z90.89 - Acquired absence of other organs (19) Lipodermatosclerosis of both lower extremities: CODE(S): I83.11 - Varicose veins of right lower extremity with inflammation; I83.12 - Varicose veins of left lower extremity with inflammation (20) Dependent edema: CODE(S): R60.9 - Edema, unspecified PLAN: Plan This is a 67-year-old morbidly obese male with a history of ulcerations in his lower extremities. He presented with 2 ulcerations on the right posterior calf, which had been present for several months. The patient has a history of lower extremity swelling and edema. He is relatively inactive. He spends a great deal of each day sitting and inactive. We are to continue a protocol of conservative treatment measures. A lengthy discussion has been undertaken with the patient. He has been encouraged to enhance his activity is much as possible. He has been discouraged from prolonged idle sitting. Leg elevation has been encouraged as well. Elevation is to be to heart level, or higher, is much as possible, and during both daytime and nighttime hours. The patient has been encouraged to sleep on a flat mattress at night. Thus far, the patient has been only moderately compliant with leg elevation. We are to continue compression to the lower extremities by means of 3M/2 layer compression wraps, which will be applied twice weekly. There is question as to whether the patient has been compliant with the use of Tubigrip's, leg elevation, and mechanical compression pumps. Promogran will be applied topically to the ulcerations with each change of the compression wrap. Weight loss has also been recommended. The patient owns pneumatic mechanical compression pumps, and has been encouraged to use these 2-3 times daily for approximately 1 hour each session. The patient is to return in 1 week for reassessment. It appears as though a lack of strict compliance may be contributing to the patient's failure to progress. Total time: 26 minutes
[2023-02-22 10:51] VITALS: BP 117/99; PULSE 61; RESP 20; TEMP 35.9; BMI 49.1
[2023-02-26 11:00] VITALS: BP 147/69; PULSE 63; RESP 18; TEMP 35.5; BMI 49.1
--- NOTE | 2023-02-26 11:26 | HP.PCM_ITS ---
History of Present Illness Date of Service: 02/26/23 Chief Complaint: Ulcerations, right posterior calf History of Wound: This is a 67-year-old obese male who presented with 2 ulcerations on the right posterior calf. The patient claimed to have had ulcerations in his lower extremities intermittently for many years. The current ulcerations had been present for several months. They occurred spontaneously, after the formation of blisters. The patient is inactive. Ambulation is limited, and he requires a cane or walker for mobility. He is morbidly obese. He sleeps in a chair. He wears graduated compression stockings of less than 20 to 30 mmHg compression. He also has pneumatic compression pumps, which he was not currently using. He has chronic swelling, edema, and lymphedema in his lower extremities. He spends a good part of each day sitting while watching television. The patient had recently undergone a venous duplex examination which revealed valvular incompetence involving the right great saphenous vein. A computerized tomography angiogram/venogram revealed no evidence of iliac vein obstruction. The patient does not smoke or drink. He is single and lives alone. 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 Right leg swelling Sleep apnea in adult Varicose veins with ulcer and inflammation Venous stasis ulcer of left lower leg with edema of left lower leg Venous stasis ulcer of right lower leg with edema of right lower leg Home Medications bumetanide 2 mg tablet 2 mg PO DAILY 01/15/23 [History Last Taken Unknown] fluoxetine 40 mg capsule 40 mg PO DAILY 01/15/23 [History Last Taken Unknown] lisinopril 20 mg tablet 20 mg PO DAILY 01/15/23 [History Last Taken Unknown] potassium citrate 10 mEq (1,080 mg) tablet,extended release 10 meq PO DAILY 01/15/23 [History Last Taken Unknown] valproic acid 250 mg capsule 250 mg PO TID 01/15/23 [History Last Taken Unknown] Allergy/AdvReac Type Severity Reaction Status Date / Time No Known Allergies Allergy Verified 01/15/23 10:10 Family History other Surgical History History of bunionectomy History of tonsillectomy Social History Smoking Status: Never smoker Vital Signs Vital Signs Vital Signs: 02/26/23 11:00 Temperature 96 F L Temperature Source Temporal Pulse Rate 63 Respiratory Rate 18 Blood Pressure 147/69 H Blood Pressure Mean 95 Blood Pressure Source Monitor Blood Pressure Position Semi-Fowlers Blood Pressure Location Left Arm Weight Weight: 372 lb Body Mass Index (BMI) 49.1 Physical Exam Const alert, oriented x3, no apparent distress, no limitations and well nourished Constitutional Narrative: The patient is morbidly obese. His BMI is 49.1. General Appearance: cooperative, comfortable, well kempt and well developed Orientation / Consciousness: awake, oriented to person, oriented to place and or iented to time HEENT normocephalic, head/scalp atraumatic and hearing grossly normal bilaterally Head and Scalp: normal to inspection, normocephalic and atraumatic External Ear: external ears normal Eyes PERRL and EOMs intact bilaterally General Eye: normal appearance of both eyes Resp normal respiratory effort, normal air movement, no retractions and no use of accessory muscles Effort and Inspection: able to speak in complete sentences Extremity no calf tenderness General Extremity: Negative for clubbing or cyanosis Skin Wound Narrative: Only 1 very small ulceration persists on the patient's right posterior calf. Dimensions are documented elsewhere. There is no sign of infection or cellulitis. There is a small amount of bioburden. Moderate swelling and edema are noted in the patient's lower extremities bilaterally. Lipodermatosclerosis and hyperpigmentation are noted bilaterally in the gaiter areas. Multiphasic, strong ankle pulses are noted bilaterally. Neuro oriented x3, CN's II-XII intact bilaterally, moves all extremities and no focal motor deficits Sensorium / Orientation: awake, alert, oriented to person, oriented to place and oriented to time Psych Appearance: grossly normal and appropriate Attitude: calm Activity / Motor Behavior: appropriate eye contact Speech: normal speech Mood & Affect: euthymic mood Thought Process: normal thought process Thought Content: normal thought content Attention / Concentration: attention grossly intact Debridement Note Debridement Note Wound debrided: Right posterior calf Laterality: Right Type of Debridement: Excisional debridement Anesthesia Used: 5% Lidocaine Gel Depth: Down to and including healthy tissue and in the subcutaneous layer Percentage of wound debrided: 100 Instrument Used: 3mm curette Tissue Removed: Bioburden and nonviable tissue Severity: Fat Layer Exposed Amount of bleeding with debridement: Mild Bleeding Controlled with: Compression and gauze Patient tolerated procedure: Patient tolerated procedure well Post-Debridement Measurements and Additional Note: Post-Debridement Measurements/Treatment - Nurse 1 - General Ulcer Assessment Start: 02/12/23 10:31 Freq: Status: Active Protocol: [id number] Activity Type Activity Date Activity User E-sign Co-sign Detail Recorded Client Recorded Date Recorded By Document 02/12/23 10:31 GM Desktop 02/12/23 10:40 GM Document 02/19/23 10:39 RB Desktop 02/19/23 10:41 RB Document 02/22/23 10:51 KW Desktop 02/22/23 11:05 KW Document 02/26/23 11:00 RB Desktop 02/26/23 11:02 RB 02/12/23 02/19/23 02/22/23 10:31 10:39 10:51 - Today's Visit Information Type of service Follow-up Visit Follow-up Visit Nurse-only (Physician/CLIENT PROFESSIONAL (Physician/CLIENT PROFESSIONAL Visit ) ) Arrival Mode Ambulatory, Ambulatory, Ambulatory, Walker Walker Walker Transfer Assistance None Patient Identification Verified (Name & Yes Yes Yes ) Patient Requires Transmission-Based No No Precautions Height and Weight Body Mass Index (BMI) 49.1 49.1 49.1 BMI Classification Obese Obese Obese Vital Signs Temperature (97.8 F-99.1 F) 97.2 F L 97 F L 96.6 F L Temperature Source Temporal Temporal Temporal Pulse Rate (60-100) 80 66 61 Pulse Location Monitor Monitor Monitor Respiratory Rate (12-18) 18 20 H Respiratory rate source Observation Observation Oxygen Delivery Method Room Air Room Air Blood Pressure (90/60-120/80) 147/94 H 139/74 H 117/99 H Blood Pressure Mean 111 95 105 Source Monitor Monitor Monitor Position Sitting Semi-Fowlers Sitting Blood Pressure Location Right Arm Left Arm Right Forearm History Since Last Visit- (Skip if this is Patient's initial visit) Have you changed medications since your No No No last visit? Any new allergies or adverse reactions No No No Had a fall/change in ADL's that may No No No increase risk of falls Signs or symptoms of abuse and/or No No No neglect since last visit Have you been in the hospital since your No No No last visit? Has dressing in place as prescribed Yes Yes Yes Has compression in place as prescribed Yes Yes Yes Has offloadiing in place as prescribed No Experienced any changes in pain level or No No No management Left Footwear Regular Shoe Regular Shoe Right Footwear Regular Shoe Regular Shoe Pain Scale: 0-10 Numeric Is Patient Pain Free? Yes Yes Yes 02/26/23 11:00 WC - Today's Visit Information Type of service Follow-up Visit (Physician/CLIENT PROFESSIONAL ) Arrival Mode Ambulatory Transfer Assistance None Patient Identification Verified (Name & Yes ) Patient Requires Transmission-Based No Precautions Height and Weight Body Mass Index (BMI) 49.1 BMI Classification Obese Vital Signs Temperature (97.8 F-99.1 F) 96 F L Temperature Source Temporal Pulse Rate (60-100) 63 Pulse Location Monitor Respiratory Rate (12-18) 18 Respiratory rate source Observation Oxygen Delivery Method Blood Pressure (90/60-120/80) 147/69 H Blood Pressure Mean 95 Source Monitor Position Semi-Fowlers Blood Pressure Location Left Arm History Since Last Visit- (Skip if this is Patient's initial visit) Have you changed medications since your No last visit? Any new allergies or adverse reactions No Had a fall/change in ADL's that may No increase risk of falls Signs or symptoms of abuse and/or No neglect since last visit Have you been in the hospital since your No last visit? Has dressing in place as prescribed Yes Has compression in place as prescribed Yes Has offloadiing in place as prescribed No Experienced any changes in pain level or No management Left Footwear Right Footwear Pain Scale: 0-10 Numeric Is Patient Pain Free? Yes - Nurse 1 - General Ulcer Measurement Start: 02/12/23 10:31 Freq: Status: Active Protocol: Activity Type Activity Date Activity User E-sign Co-sign Detail Recorded Client Recorded Date Recorded By Document 02/12/23 10:31 Desktop 02/12/23 10:40 GM Document 02/19/23 10:39 RB Desktop 02/19/23 10:41 RB Document 02/22/23 10:51 KW Desktop 02/22/23 11:05 KW Document 02/26/23 11:00 RB Desktop 02/26/23 11:02 RB 02/12/23 02/19/23 02/22/23 10:31 10:39 10:51 Wound Center Nurse 1 #3 L Shah -Current Size (cm) - Length 1.0 -Current Size (cm) - Width 1.0 -Current Size (cm) - Depth 1.0 -Total Square Cm 1.00 -Photo Taken No -Undermining/Tunneling No -Circular Undermining No -Exudate Amt None Present -Wound Margin Flat & Intact -Granulation Amt Small (1-33%) -Granulation Quality Jacinto -Slough/Fibrin No -Necrosis Amt None Present (0 %) -Structure Exposed N/A -Texture (Marilynn-wound Skin Appearance) Scarring -Moisture (Marilynn-wound Skin Appearance) No Abnormality -Color (Marilynn-wound Skin Appearance) Hemosiderin Staining -Temperature (Marilynn-wound Skin No Abnormality Appearance) (Pt Warm) -Ulcer Cleansing Rinsed/ Irrigated with Saline -Foul Odor after Cleansing No 2-right lateral calf cluster -Combined with other wound No -Current Size (cm) - Length 0.7 0.7 0.6 -Current Size (cm) - Width 5.5 6 5.3 -Current Size (cm) - Depth 0.2 0.2 0.1 -Total Square Cm 3.85 4.2 3.18 -Photo Taken Yes -Epithelialization Small 1-33% -Tunneling No No -Undermining/Tunneling No No -Circular Undermining No No -Change in Wound Grade/Stage No -Exudate Amt Medium Medium -Exudate Type Serosanguineous Serosanguineous -Wound Margin Distinct, Distinct, Outline Outline Attached Attached -Granulation Amt Small (1-33%) Medium (34-66%) Medium (34-66%) -Granulation Quality Jacinto Jacinto,Red Red -Slough/Fibrin No Yes -Necrosis Amt Medium (34-66%) Small (1-33%) -Necrotic Tissue Type Adherent Slough Adherent Slough -Structure Exposed N/A N/A -Texture (Marilynn-wound Skin Appearance) No Abnormality Assessed Assessed -Moisture (Marilynn-wound Skin Appearance) Assessed Assessed -Color (Marilynn-wound Skin Appearance) Assessed Assessed, Erythema -Temperature (Marilynn-wound Skin No Abnormality No Abnormality No Abnormality Appearance) (Pt Warm) (Pt Warm) (Pt Warm) -Tenderness on Palpation (Marilynn-wound No Skin Appearance) -Ulcer Cleansing Rinsed/ Wound Cleanser Soap and Water Irrigated with Saline -Foul Odor after Cleansing No No -Anesthetic Used 5% Lidocaine Gel Lower Limb Edema Present Yes Right Calf (cm) 52.5 Point of measurement (cm from the medial 49.5 instep) Right Ankle (cm) 31 Point of Measurement (cm from the medial 30.5 instep) Left Calf (cm) Point of measurement (cm from the medial 47.5 instep) Left Ankle (cm) Point of Measurement (cm from the medial 28.5 instep) 02/26/23 11:00 Wound Center Nurse 1 #3 L Hsah -Current Size (cm) - Length -Current Size (cm) - Width -Current Size (cm) - Depth -Total Square Cm -Photo Taken -Undermining/Tunneling -Circular Undermining -Exudate Amt -Wound Margin -Granulation Amt -Granulation Quality -Slough/Fibrin -Necrosis Amt -Structure Exposed -Texture (Marilynn-wound Skin Appearance) -Moisture (Marilynn-wound Skin Appearance) -Color (Marilynn-wound Skin Appearance) -Temperature (Marilynn-wound Skin Appearance) -Ulcer Cleansing -Foul Odor after Cleansing 2-right lateral calf cluster -Combined with other wound No -Current Size (cm) - Length 0.1 -Current Size (cm) - Width 0.1 -Current Size (cm) - Depth 0.1 -Total Square Cm 0.01 -Photo Taken -Epithelialization -Tunneling No -Undermining/Tunneling No -Circular Undermining No -Change in Wound Grade/Stage -Exudate Amt Medium -Exudate Type Serosanguineous -Wound Margin Distinct, Outline Attached -Granulation Amt Medium (34-66%) -Granulation Quality Jacinto -Slough/Fibrin Yes -Necrosis Amt None Present (0 %) -Necrotic Tissue Type Adherent Slough -Structure Exposed N/A -Texture (Marilynn-wound Skin Appearance) Assessed -Moisture (Marilynn-wound Skin Appearance) Assessed -Color (Marilynn-wound Skin Appearance) Assessed -Temperature (Marilynn-wound Skin No Abnormality Appearance) (Pt Warm) -Tenderness on Palpation (Marilynn-wound No Skin Appearance) -Ulcer Cleansing Wound Cleanser -Foul Odor after Cleansing No -Anesthetic Used 5% Lidocaine Gel Lower Limb Edema Present Yes Right Calf (cm) 50.5 Point of measurement (cm from the medial instep) Right Ankle (cm) 28.5 Point of Measurement (cm from the medial instep) Left Calf (cm) 48 Point of measurement (cm from the medial instep) Left Ankle (cm) 28 Point of Measurement (cm from the medial instep) WC - Nurse 2 - General Ulcer CM Notes Start: 02/12/23 10:31 Freq: Status: Active Protocol: Activity Type Activity Date Activity User E-sign Co-sign Detail Recorded Client Recorded Date Recorded By Document 02/12/23 13:23 PL [id number] 02/12/23 13:24 PL Document 02/19/23 13:21 PL [id number] 02/19/23 13:22 PL 02/12/23 02/19/23 13:23 13:21 Wound Center Nurse 2 #3 L Shah -Procedure Performed No -Wound/Ulcer Outcome Healed- Epithelialized 2-right lateral calf cluster -Time 10:45 10:58 -Correct Patient Yes Yes -Correct Side, Site, Position Yes Yes -Correct Procedure Yes Yes -Procedure Performed Yes Yes -Type of Procedure Debridement Debridement -Clinical Debridement Subcutaneous Subcutaneous -Tissue Removed Subcutaneous Subcutaneous -Post Debridement (cm) - Length 0.7 0.7 -Post Debridement (cm) - Width 5.5 6.0 -Post Debridement (cm) - Depth 0.2 0.2 -Total Square (Post) (cm) 3.85 4.20 -Area of Debridement (cm) - Length 0.7 0.7 -Area of Debridement (cm) - Width 5.5 6.0 -Total Square (Area) (cm) 3.85 4.20 -Tunneling No No -Undermining/Tunneling No No -Circular Undermining No No -Wound/Ulcer Outcome Not Healed Not Healed -Ulcer Cleansing Rinsed/ Rinsed/ Irrigated with Irrigated with Saline Saline -Foul Odor after Cleansing No No -Bioengineered Tissue No No -Bleeding Controlled with Pressure Pressure -Treatment Response Procedure Procedure Tolerated Well Tolerated Well -Debridement - Subq, 1st 20sq cm Yes Yes Pain Scale: 0-10 Numeric Is Patient Pain Free? Yes Yes - Nurse 3 - General Ulcer D/C NN Start: 02/12/23 10:31 Freq: Status: Active Protocol: Activity Type Activity Date Activity User E-sign Co-sign Detail Recorded Client Recorded Date Recorded By Document 02/19/23 11:21 RB Desktop 02/19/23 11:22 RB Document 02/22/23 11:05 KW Desktop 02/22/23 11:06 KW 02/19/23 02/22/23 11:21 11:05 Wound Care Center Nurse 3 2-right lateral calf cluster -Ulcer Cleansing Rinsed/ Irrigated with Saline -Primary Dressing Applied Promogran -Other Dressing promogran -Primary Dressing Covered/Secured with Dry Gauze & Dry Gauze & Roll Gauze, Roll Gauze, Secured with Secured with Tape Tape -Promogran 1 bilat -Multi-Layered Wrap Application Multi-Layer Multi-Layer Comp - Bilat ($ Comp - Bilat ($ ) ) Treatment Response Procedure Tolerated Well Pain Scale: 0-10 Numeric Is Patient Pain Free? Yes Yes WC - Visit Discharge Discharge Condition Stable Stable Ambulatory Status Ambulatory, Ambulatory, Walker Walker Transportation Private Auto Private Auto Medication Reconcilliation completed & No No provided to patient/care provider Clinical Summary of Care Provided Yes Yes Assessment/Plan Assessment/Plan (1) Venous stasis ulcer of right lower leg with edema of right lower leg: CODE(S): I83.019 - Varicose veins of right lower extremity with ulcer of unspecified site; I83.891 - Varicose veins of right lower extremity with other complications; L97.919 - Non-pressure chronic ulcer of unspecified part of right lower leg with unspecified severity; R60.0 - Localized edema (2) Venous stasis ulcer of left lower leg with edema of left lower leg: CODE(S): I83.029 - Varicose veins of left lower extremity with ulcer of unspecified site; I83.892 - Varicose veins of left lower extremity with other complications; L97.929 - Non-pressure chronic ulcer of unspecified part of left lower leg with unspecified severity; R60.0 - Localized edema (3) Chronic venous hypertension w/ulcer and inflammation involv right side: CODE(S): I87.331 - Chronic venous hypertension (idiopathic) with ulcer and inflammation of right lower extremity (4) Right leg swelling: CODE(S): M79.89 - Other specified soft tissue disorders (5) Leg edema, right: CODE(S): R60.0 - Localized edema (6) Lymphedema: CODE(S): I89.0 - Lymphedema, not elsewhere classified (7) 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: CODE(S): I87.039 - Postthrombotic syndrome with ulcer and inflammation of unspecified lower extremity (8) History of deep vein thrombosis: CODE(S): Z86.718 - Personal history of other venous thrombosis and embolism (9) History of pulmonary embolism: CODE(S): Z86.711 - Personal history of pulmonary embolism (10) Varicose veins with ulcer and inflammation: CODE(S): I83.209 - Varicose veins of unspecified lower extremity with both ulcer of unspecified site and inflammation; L97.909 - Non-pressure chronic ulcer of unspecified part of unspecified lower leg with unspecified severity (11) Morbid obesity with BMI of 45.0-49.9, adult: CODE(S): E66.01 - Morbid (severe) obesity due to excess calories; Z68.42 - Body mass index [BMI] 45.0-49.9, adult (12) Hypertension: CODE(S): I10 - Essential (primary) hypertension (13) Diabetes mellitus: CODE(S): E11.9 - Type 2 diabetes mellitus without complications (14) Sleep apnea in adult: CODE(S): G47.30 - Sleep apnea, unspecified (15) Left leg swelling: CODE(S): M79.89 - Other specified soft tissue disorders (16) Leg edema, left: CODE(S): R60.0 - Localized edema (17) History of bunionectomy: CODE(S): Z98.890 - Other specified postprocedural states (18) History of tonsillectomy: CODE(S): Z90.89 - Acquired absence of other organs (19) Lipodermatosclerosis of both lower extremities: CODE(S): I83.11 - Varicose veins of right lower extremity with inflammation; I83.12 - Varicose veins of left lower extremity with inflammation (20) Dependent edema: CODE(S): R60.9 - Edema, unspecified PLAN: Plan This is a 67-year-old morbidly obese male with a history of ulcerations in his lower extremities. He presented with 2 ulcerations on the right posterior calf, which had been present for several months. The patient has a history of lower extremity swelling and edema. He is relatively inactive. He spends a great deal of each day sitting and inactive. We are to continue a protocol of conservative treatment measures. A lengthy discussion has been undertaken with the patient. He has been encouraged to enhance his activity is much as possible. He has been discouraged from prolonged idle sitting. Leg elevation has been encouraged as well. Elevation is to be to heart level, or higher, is much as possible, and during both daytime and nighttime hours. The patient has been encouraged to sleep on a flat mattress at night. Thus far, the patient has been only moderately compliant with leg elevation. We are to continue compression to the lower extremities by means of 3M/2 layer compression wraps, which will be applied twice weekly. Promogran will be applied topically to the ulceration with each change of the compression wrap. Weight loss has also been recommended. The patient owns pneumatic mechanical compression pumps, and has been encouraged to use these 2-3 times daily for approximately 1 hour each session. The patient is to return in 1 week for reassessment. The patient is doing well at this time, and may be completely healed in the very near future. Total time: 25 minutes
[2023-03-01 14:00] VITALS: BP 135/85; PULSE 68; RESP 18; TEMP 35.9; BMI 49.1
[2023-03-05 10:36] VITALS: BP 148/92; PULSE 61; RESP 18; TEMP 35.8; BMI 49.1
--- NOTE | 2023-03-05 11:14 | HP.PCM_ITS ---
History of Present Illness Date of Service: 03/05/23 Chief Complaint: Ulcerations, right posterior calf History of Wound: This is a 67-year-old obese male who presented with 2 ulcerations on the right posterior calf. The patient claimed to have had ulcerations in his lower extremities intermittently for many years. The current ulcerations had been present for several months. They occurred spontaneously, after the formation of blisters. The patient is inactive. Ambulation is limited, and he requires a cane or walker for mobility. He is morbidly obese. He sleeps in a chair. He wears graduated compression stockings of less than 20 to 30 mmHg compression. He also has pneumatic compression pumps, which he was not currently using. He has chronic swelling, edema, and lymphedema in his lower extremities. He spends a good part of each day sitting while watching television. The patient had recently undergone a venous duplex examination which revealed valvular incompetence involving the right great saphenous vein. A computerized tomography angiogram/venogram revealed no evidence of iliac vein obstruction. The patient does not smoke or drink. He is single and lives alone. 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 Right leg swelling Sleep apnea in adult Varicose veins with ulcer and inflammation Venous stasis ulcer of left lower leg with edema of left lower leg Venous stasis ulcer of right lower leg with edema of right lower leg Home Medications bumetanide 2 mg tablet 2 mg PO DAILY 01/15/23 [History Last Taken Unknown] fluoxetine 40 mg capsule 40 mg PO DAILY 01/15/23 [History Last Taken Unknown] lisinopril 20 mg tablet 20 mg PO DAILY 01/15/23 [History Last Taken Unknown] potassium citrate 10 mEq (1,080 mg) tablet,extended release 10 meq PO DAILY 01/15/23 [History Last Taken Unknown] valproic acid 250 mg capsule 250 mg PO TID 01/15/23 [History Last Taken Unknown] Allergy/AdvReac Type Severity Reaction Status Date / Time No Known Allergies Allergy Verified 01/15/23 10:10 Family History other Surgical History History of bunionectomy History of tonsillectomy Social History Smoking Status: Never smoker Vital Signs Vital Signs Vital Signs: 03/05/23 10:36 Temperature 96.4 F L Temperature Source Temporal Pulse Rate 61 Respiratory Rate 18 Blood Pressure 148/92 H Blood Pressure Mean 110 Blood Pressure Source Monitor Blood Pressure Position Supine Blood Pressure Location Left Forearm Oxygen Delivery Method Room Air Weight Weight: 372 lb Body Mass Index (BMI) 49.1 Physical Exam Const alert, oriented x3, no apparent distress, no limitations and well nourished Constitutional Narrative: The patient is morbidly obese. His BMI is 49.1. General Appearance: cooperative, comfortable, well kempt and well developed Orientation / Consciousness: awake, oriented to person, oriented to place and oriented to time HEENT normocephalic, head/scalp atraumatic and hearing grossly normal bilaterally Head and Scalp: normal to inspection, normocephalic and atraumatic External Ear: external ears normal Eyes PERRL and EOMs intact bilaterally General Eye: normal appearance of both eyes Resp normal respiratory effort, normal air movement, no retractions and no use of accessory muscles Effort and Inspection: able to speak in complete sentences Extremity no calf tenderness General Extremity: Negative for clubbing or cyanosis Skin Wound Narrative: The ulcerations on the patient's right posterior calf are now completely healed and epithelialized. There is no sign of infection or cellulitis. The swelling in the patient's lower extremities appears to be reasonably well controlled. Lipodermatosclerosis and hyperpigmentation are noted bilaterally in the gaiter areas. Multiphasic, strong ankle pulses are noted bilaterally. Neuro oriented x3, CN's II-XII intact bilaterally, moves all extremities and no focal motor deficits Sensorium / Orientation: awake, alert, oriented to person, oriented to place and oriented to time Psych Appearance: grossly normal and appropriate Attitude: calm Activity / Motor Behavior: appropriate eye contact Speech: normal speech Mood & Affect: euthymic mood Thought Process: normal thought process Thought Content: normal thought content Attention / Concentration: attention grossly intact Debridement Note Debridement Note No debridement was completed: No debridement was completed today Post-Debridement Measurements and Additional Note: Post-Debridement Measurements/Treatment WC - Nurse 1 - General Ulcer Assessment Start: 02/12/23 10:31 Freq: Status: Active Protocol: JACKIE Activity Type Activity Date Activity User E-sign Co-sign Detail Recorded Client Recorded Date Recorded By Document 02/12/23 10:31 GM Desktop 02/12/23 10:40 GM Document 02/19/23 10:39 RB Desktop 02/19/23 10:41 RB Document 02/22/23 10:51 KW Desktop 02/22/23 11:05 KW Document 02/26/23 11:00 RB Desktop 02/26/23 11:02 RB Document 03/01/23 14:00 RB Desktop 03/01/23 14:03 RB Document 03/05/23 10:36 MW Desktop 03/05/23 10:50 MW 02/12/23 02/19/23 02/22/23 10:31 10:39 10:51 - Today's Visit Information Type of service Follow-up Visit Follow-up Visit Nurse-only (Physician/WIRELESS CONSULTANT (Physician/WIRELESS CONSULTANT Visit ) ) Arrival Mode Ambulatory, Ambulatory, Ambulatory, Walker Walker Walker Transfer Assistance None Accompanied by Patient Identification Verified (Name & Yes Yes Yes ) Patient Requires Transmission-Based No No Precautions Safety Precautions Height and Weight Body Mass Index (BMI) 49.1 49.1 49.1 BMI Classification Obese Obese Obese Vital Signs Temperature (97.8 F-99.1 F) 97.2 F L 97 F L 96.6 F L Temperature Source Temporal Temporal Temporal Pulse Rate (60-100) 80 66 61 Pulse Location Monitor Monitor Monitor Respiratory Rate (12-18) 18 20 H Respiratory rate source Observation Observation Oxygen Delivery Method Room Air Room Air Blood Pressure (90/60-120/80) 147/94 H 139/74 H 117/99 H Blood Pressure Mean 111 95 105 Source Monitor Monitor Monitor Position Sitting Semi-Fowlers Sitting Blood Pressure Location Right Arm Left Arm Right Forearm History Since Last Visit- (Skip if this is Patient's initial visit) Have you changed medications since your No No No last visit? Any new allergies or adverse reactions No No No Had a fall/change in ADL's that may No No No increase risk of falls Signs or symptoms of abuse and/or No No No neglect since last visit Have you been in the hospital since your No No No last visit? Has dressing in place as prescribed Yes Yes Yes Has compression in place as prescribed Yes Yes Yes Has offloadiing in place as prescribed No Experienced any changes in pain level or No No No management Left Footwear Regular Shoe Regular Shoe Right Footwear Regular Shoe Regular Shoe Pain Scale: 0-10 Numeric Is Patient Pain Free? Yes Yes Yes 02/26/23 03/01/23 03/05/23 11:00 14:00 10:36 - Today's Visit Information Type of service Follow-up Visit Nurse-only Follow-up Visit (Physician/WIRELESS CONSULTANT Visit (Physician/WIRELESS CONSULTANT ) ) Arrival Mode Ambulatory Ambulatory Ambulatory, Walker Transfer Assistance None None None Accompanied by self Patient Identification Verified (Name & Yes Yes Yes ) Patient Requires Transmission-Based No No No Precautions Safety Precautions NA Height and Weight Body Mass Index (BMI) 49.1 49.1 49.1 BMI Classification Obese Obese Obese Vital Signs Temperature (97.8 F-99.1 F) 96 F L 96.6 F L 96.4 F L Temperature Source Temporal Temporal Temporal Pulse Rate (60-100) 63 68 61 Pulse Location Monitor Monitor Monitor Respiratory Rate (12-18) 18 18 18 Respiratory rate source Observation Observation Observation Oxygen Delivery Method Room Air Blood Pressure (90/60-120/80) 147/69 H 135/85 H 148/92 H Blood Pressure Mean 95 101 110 Source Monitor Monitor Monitor Position Semi-Fowlers Semi-Fowlers Supine Blood Pressure Location Left Arm Left Arm Left Forearm History Since Last Visit- (Skip if this is Patient's initial visit) Have you changed medications since your No No No last visit? Any new allergies or adverse reactions No No No Had a fall/change in ADL's that may No No No increase risk of falls Signs or symptoms of abuse and/or No No No neglect since last visit Have you been in the hospital since your No No No last visit? Has dressing in place as prescribed Yes Yes Yes Has compression in place as prescribed Yes Yes Yes Has offloadiing in place as prescribed No No N/A Experienced any changes in pain level or No No No management Left Footwear Regular Shoe Right Footwear Regular Shoe Pain Scale: 0-10 Numeric Is Patient Pain Free? Yes Yes Yes - Nurse 1 - General Ulcer Measurement Start: 02/12/23 10:31 Freq: Status: Active Protocol: Activity Type Activity Date Activity User E-sign Co-sign Detail Recorded Client Recorded Date Recorded By Document 02/12/23 10:31 GM Desktop 02/12/23 10:40 GM Document 02/19/23 10:39 RB Desktop 02/19/23 10:41 RB Document 02/22/23 10:51 KW Desktop 02/22/23 11:05 KW Document 02/26/23 11:00 RB Desktop 02/26/23 11:02 RB Document 03/01/23 14:00 RB Desktop 03/01/23 14:03 RB Document 03/05/23 10:36 MW Desktop 03/05/23 10:50 MW 02/12/23 02/19/23 02/22/23 10:31 10:39 10:51 Wound Center Nurse 1 #3 L Shah -Current Size (cm) - Length 1.0 -Current Size (cm) - Width 1.0 -Current Size (cm) - Depth 1.0 -Total Square Cm 1.00 -Photo Taken No -Undermining/Tunneling No -Circular Undermining No -Exudate Amt None Present -Wound Margin Flat & Intact -Granulation Amt Small (1-33%) -Granulation Quality [place] -Slough/Fibrin No -Necrosis Amt None Present (0 %) -Structure Exposed N/A -Texture (Marilynn-wound Skin Appearance) Scarring -Moisture (Marilynn-wound Skin Appearance) No Abnormality -Color (Marilynn-wound Skin Appearance) Hemosiderin Staining -Temperature (Marilynn-wound Skin No Abnormality Appearance) (Pt Warm) -Ulcer Cleansing Rinsed/ Irrigated with Saline -Foul Odor after Cleansing No 2-right lateral calf cluster -Combined with other wound No -Current Size (cm) - Length 0.7 0.7 0.6 -Current Size (cm) - Width 5.5 6 5.3 -Current Size (cm) - Depth 0.2 0.2 0.1 -Total Square Cm 3.85 4.2 3.18 -Date of Last Picture (Recall this field) -Photo Taken Yes -Epithelialization Small 1-33% -Tunneling No No -Undermining/Tunneling No No -Circular Undermining No No -Change in Wound Grade/Stage No -Exudate Amt Medium Medium -Exudate Type Serosanguineous Serosanguineous -Wound Margin Distinct, Distinct, Outline Outline Attached Attached -Granulation Amt Small (1-33%) Medium (34-66%) Medium (34-66%) -Granulation Quality [place],Red Red -Slough/Fibrin No Yes -Necrosis Amt Medium (34-66%) Small (1-33%) -Necrotic Tissue Type Adherent Slough Adherent Slough -Structure Exposed N/A N/A -Texture (Marilynn-wound Skin Appearance) No Abnormality Assessed Assessed -Moisture (Marilynn-wound Skin Appearance) Assessed Assessed -Color (Marilynn-wound Skin Appearance) Assessed Assessed, Erythema -Temperature (Marilynn-wound Skin No Abnormality No Abnormality No Abnormality Appearance) (Pt Warm) (Pt Warm) (Pt Warm) -Tenderness on Palpation (Marilynn-wound No Skin Appearance) -Ulcer Cleansing Rinsed/ Wound Cleanser Soap and Water Irrigated with Saline -Foul Odor after Cleansing No No -Anesthetic Used 5% Lidocaine Gel Lower Limb Edema Present Yes Right Calf (cm) 52.5 Point of measurement (cm from the medial 49.5 instep) Right Ankle (cm) 31 Point of Measurement (cm from the medial 30.5 instep) Left Calf (cm) Point of measurement (cm from the medial 47.5 instep) Left Ankle (cm) Point of Measurement (cm from the medial 28.5 instep) 02/26/23 03/01/23 03/05/23 11:00 14:00 10:36 Wound Center Nurse 1 #3 L Shah -Current Size (cm) - Length -Current Size (cm) - Width -Current Size (cm) - Depth -Total Square Cm -Photo Taken -Undermining/Tunneling -Circular Undermining -Exudate Amt -Wound Margin -Granulation Amt -Granulation Quality -Slough/Fibrin -Necrosis Amt -Structure Exposed -Texture (Marilynn-wound Skin Appearance) -Moisture (Marilynn-wound Skin Appearance) -Color (Marilynn-wound Skin Appearance) -Temperature (Marilynn-wound Skin Appearance) -Ulcer Cleansing -Foul Odor after Cleansing 2-right lateral calf cluster -Combined with other wound No No -Current Size (cm) - Length 0.1 0.1 -Current Size (cm) - Width 0.1 0.1 -Current Size (cm) - Depth 0.1 0.1 -Total Square Cm 0.01 0.01 -Date of Last Picture (Recall this 03/05/23 field) -Photo Taken Yes -Epithelialization Large 67-100% -Tunneling No No -Undermining/Tunneling No No -Circular Undermining No No -Change in Wound Grade/Stage -Exudate Amt Medium None Present -Exudate Type Serosanguineous -Wound Margin Distinct, Outline Attached -Granulation Amt Medium (34-66%) None Present (0 %) -Granulation Quality [place] N/A -Slough/Fibrin Yes No -Necrosis Amt None Present (0 None Present (0 %) %) -Necrotic Tissue Type Adherent Slough -Structure Exposed N/A -Texture (Marilynn-wound Skin Appearance) Assessed Assessed, Localized Edema ,Scarring -Moisture (Marilynn-wound Skin Appearance) Assessed Assessed,Dry/ Scaly -Color (Marilynn-wound Skin Appearance) Assessed Assessed, Hemosiderin Staining -Temperature (Marilynn-wound Skin No Abnormality No Abnormality Appearance) (Pt Warm) (Pt Warm) -Tenderness on Palpation (Marilynn-wound No No Skin Appearance) -Ulcer Cleansing Wound Cleanser Soap and Water -Foul Odor after Cleansing No No -Anesthetic Used 5% Lidocaine Gel Lower Limb Edema Present Yes Yes Yes Right Calf (cm) 50.5 48.3 49.0 Point of measurement (cm from the medial instep) Right Ankle (cm) 28.5 29.2 29.2 Point of Measurement (cm from the medial instep) Left Calf (cm) 48 47 48.0 Point of measurement (cm from the medial instep) Left Ankle (cm) 28 27.9 29.0 Point of Measurement (cm from the medial instep) WC - Nurse 2 - General Ulcer CM Notes Start: 02/12/23 10:31 Freq: Status: Active Protocol: Activity Type Activity Date Activity User E-sign Co-sign Detail Recorded Client Recorded Date Recorded By Document 02/12/23 13:23 PL [id number] 02/12/23 13:24 PL Document 02/19/23 13:21 PL [id number] 02/19/23 13:22 PL Document 02/26/23 13:53 PL [id number] 02/26/23 13:54 PL 02/12/23 02/19/23 02/26/23 13:23 13:21 13:53 Wound Center Nurse 2 #3 L Shah -Procedure Performed No -Wound/Ulcer Outcome Healed- Epithelialized 2-right lateral calf cluster -Time 10:45 10:58 11:18 -Correct Patient Yes Yes Yes -Correct Side, Site, Position Yes Yes Yes -Correct Procedure Yes Yes Yes -Procedure Performed Yes Yes Yes -Type of Procedure Debridement Debridement Debridement -Clinical Debridement Subcutaneous Subcutaneous Subcutaneous -Tissue Removed Subcutaneous Subcutaneous Subcutaneous -Post Debridement (cm) - Length 0.7 0.7 0.1 -Post Debridement (cm) - Width 5.5 6.0 0.1 -Post Debridement (cm) - Depth 0.2 0.2 0.1 -Total Square (Post) (cm) 3.85 4.20 0.01 -Area of Debridement (cm) - Length 0.7 0.7 0.1 -Area of Debridement (cm) - Width 5.5 6.0 0.1 -Total Square (Area) (cm) 3.85 4.20 0.01 -Tunneling No No No -Undermining/Tunneling No No No -Circular Undermining No No No -Wound/Ulcer Outcome Not Healed Not Healed Not Healed -Ulcer Cleansing Rinsed/ Rinsed/ Rinsed/ Irrigated with Irrigated with Irrigated with Saline Saline Saline -Foul Odor after Cleansing No No No -Bioengineered Tissue No No No -Bleeding Controlled with Pressure Pressure Pressure -Treatment Response Procedure Procedure Procedure Tolerated Well Tolerated Well Tolerated Well -Debridement - Subq, 1st 20sq cm Yes Yes Yes Pain Scale: 0-10 Numeric Is Patient Pain Free? Yes Yes Yes - Nurse 3 - General Ulcer D/C NN Start: 02/12/23 10:31 Freq: Status: Active Protocol: Activity Type Activity Date Activity User E-sign Co-sign Detail Recorded Client Recorded Date Recorded By Document 02/19/23 11:21 RB Desktop 02/19/23 11:22 RB Document 02/22/23 11:05 KW Desktop 02/22/23 11:06 KW Document 02/26/23 11:45 MT Desktop 02/26/23 11:50 MT Document 03/01/23 14:00 RB Desktop 03/01/23 14:03 RB 02/19/23 02/22/23 02/26/23 11:21 11:05 11:45 Wound Care Center Nurse 3 2-right lateral calf cluster -Ulcer Cleansing Rinsed/ Irrigated with Saline -Primary Dressing Applied Promogran -Other Dressing promogran -Primary Dressing Covered/Secured with Dry Gauze & Dry Gauze & Roll Gauze, Roll Gauze, Secured with Secured with Tape Tape -Promogran 1 bilat -Multi-Layered Wrap Application Multi-Layer Multi-Layer Multi-Layer Comp - Bilat ($ Comp - Bilat ($ Comp - Bilat ($ ) ) ) Treatment Response Procedure Tolerated Well Vital Signs Temperature (97.8 F-99.1 F) Temperature Source Pulse Rate (60-100) Pulse Location Respiratory Rate (12-18) Respiratory rate source Blood Pressure (90/60-120/80) Blood Pressure Mean Source Position Blood Pressure Location Pain Scale: 0-10 Numeric Is Patient Pain Free? Yes Yes Yes WC - Visit Discharge Discharge Condition Stable Stable Stable Ambulatory Status Ambulatory, Ambulatory, Ambulatory, Walker Walker Walker Transportation Private Auto Private Auto Private Auto Medication Reconcilliation completed & No No No provided to patient/care provider Clinical Summary of Care Provided Yes Yes Yes Notes: pt knows to keep legs dry and to elevate legs. 03/01/23 14:00 Wound Care Center Nurse 3 2-right lateral calf cluster -Ulcer Cleansing Wound Cleanser -Primary Dressing Applied -Other Dressing promogran -Primary Dressing Covered/Secured with Dry Gauze -Promogran bilat -Multi-Layered Wrap Application Multi-Layer Comp - Bilat ($ ) Treatment Response Procedure Tolerated Well Vital Signs Temperature (97.8 F-99.1 F) 96.6 F L Temperature Source Temporal Pulse Rate (60-100) 68 Pulse Location Monitor Respiratory Rate (12-18) 18 Respiratory rate source Observation Blood Pressure (90/60-120/80) 135/85 H Blood Pressure Mean 101 Source Monitor Position Semi-Fowlers Blood Pressure Location Left Arm Pain Scale: 0-10 Numeric Is Patient Pain Free? Yes WC - Visit Discharge Discharge Condition Stable Ambulatory Status Ambulatory Transportation Private Auto Medication Reconcilliation completed & No provided to patient/care provider Clinical Summary of Care Provided Yes Notes: Assessment/Plan Assessment/Plan (1) Venous stasis ulcer of right lower leg with edema of right lower leg: CODE(S): I83.019 - Varicose veins of right lower extremity with ulcer of unspecified site; I83.891 - Varicose veins of right lower extremity with other complications; L97.919 - Non-pressure chronic ulcer of unspecified part of right lower leg with unspecified severity; R60.0 - Localized edema (2) Venous stasis ulcer of left lower leg with edema of left lower leg: CODE(S): I83.029 - Varicose veins of left lower extremity with ulcer of unspecified site; I83.892 - Varicose veins of left lower extremity with other complications; L97.929 - Non-pressure chronic ulcer of unspecified part of left lower leg with unspecified severity; R60.0 - Localized edema (3) Chronic venous hypertension w/ulcer and inflammation involv right side: CODE(S): I87.331 - Chronic venous hypertension (idiopathic) with ulcer and inflammation of right lower extremity (4) Right leg swelling: CODE(S): M79.89 - Other specified soft tissue disorders (5) Leg edema, right: CODE(S): R60.0 - Localized edema (6) Lymphedema: CODE(S): I89.0 - Lymphedema, not elsewhere classified (7) 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: CODE(S): I87.039 - Postthrombotic syndrome with ulcer and inflammation of unspecified lower extremity (8) History of deep vein thrombosis: CODE(S): Z86.718 - Personal history of other venous thrombosis and embolism (9) History of pulmonary embolism: CODE(S): Z86.711 - Personal history of pulmonary embolism (10) Varicose veins with ulcer and inflammation: CODE(S): I83.209 - Varicose veins of unspecified lower extremity with both ulcer of unspecified site and inflammation; L97.909 - Non-pressure chronic ulcer of unspecified part of unspecified lower leg with unspecified severity (11) Morbid obesity with BMI of 45.0-49.9, adult: CODE(S): E66.01 - Morbid (severe) obesity due to excess calories; Z68.42 - Body mass index [BMI] 45.0-49.9, adult (12) Hypertension: CODE(S): I10 - Essential (primary) hypertension (13) Diabetes mellitus: CODE(S): E11.9 - Type 2 diabetes mellitus without complications (14) Sleep apnea in adult: CODE(S): G47.30 - Sleep apnea, unspecified (15) Left leg swelling: CODE(S): M79.89 - Other specified soft tissue disorders (16) Leg edema, left: CODE(S): R60.0 - Localized edema (17) History of bunionectomy: CODE(S): Z98.890 - Other specified postprocedural states (18) History of tonsillectomy: CODE(S): Z90.89 - Acquired absence of other organs (19) Lipodermatosclerosis of both lower extremities: CODE(S): I83.11 - Varicose veins of right lower extremity with inflammation; I83.12 - Varicose veins of left lower extremity with inflammation (20) Dependent edema: CODE(S): R60.9 - Edema, unspecified PLAN: Plan This is a 67-year-old morbidly obese male with a history of ulcerations in his lower extremities. He presented with 2 ulcerations on the right posterior calf, which had been present for several months. The patient has a history of lower extremity swelling and edema. He is relatively inactive. He spends a great deal of each day sitting and inactive. The ulcerations on the patient's right posterior calf are now completely healed and epithelialized. Therefore, he is to be discharged, and will follow-up henceforth on an as-needed basis. He has been advised to continue a protocol of conservative treatment measures. A lengthy discussion has been undertaken with the patient. He has been encouraged to enhance his activity is much as possible. He has been discouraged from prolonged idle sitting. Leg elevation has been encouraged as well. Elevation is to be to heart level, or higher, is much as possible, and during both daytime and nighttime hours. The patient has been encouraged to sleep on a flat mattress at night. A prescription has been provided to the patient for graduated compression stockings of 20 to 30 mmHg compression, which are to be worn on a daily basis. He is to be discharged today with Tubigrip's, to be replaced by graduated compression stockings of 20 to 30 mmHg, once obtained. Weight loss has also been recommended. The patient owns pneumatic mechanical compression pumps, and has been encouraged to use these 2-3 times daily for approximately 1 hour each session. The patient is to be discharged, and will follow-up henceforth on an as-needed basis. Total time: 24 minutes
== END 2023-03-05 15:42 | disposition home or self-care (01) ==
LOC: WC 10:30
PROVIDERS: PCP Family Medicine; Referring Provider Family Medicine; Visit Provider Surgery
DX: I83.892 Varicose veins of left lower extremity with other complications (principal); L97.922 Non-pressure chronic ulcer of unspecified part of left lower leg with fat layer exposed; L97.912 Non-pressure chronic ulcer of unspecified part of right lower leg with fat layer exposed; I87.331 Chronic venous hypertension (idiopathic) with ulcer and inflammation of right lower extremity; E66.01 Morbid (severe) obesity due to excess calories; Z68.42 Body mass index [BMI] 45.0-49.9, adult; E11.9 Type 2 diabetes mellitus without complications; G47.30 Sleep apnea, unspecified; I89.0 Lymphedema, not elsewhere classified; R60.0 Localized edema; M79.89 Other specified soft tissue disorders; I83.891 Varicose veins of right lower extremity with other complications; Z86.711 Personal history of pulmonary embolism; Z86.718 Personal history of other venous thrombosis and embolism; Z90.89 Acquired absence of other organs; I83.11 Varicose veins of right lower extremity with inflammation
CPT/HCPCS: 11042; 29581; 99213; G0463